=== PATIENT | male | born 1935 | race Caucasian/White ===

== ENCOUNTER 2022-08-08 20:38 | Outpatient (CLI) | payer MEDICARE, SELFPAY | END 2022-08-08 20:39 | disposition home or self-care (01) | LOC: AMB 08-09 16:26 | PROVIDERS: PCP Family Medicine; Visit Provider Family Medicine | DX: R53.1 Weakness (principal) | CPT/HCPCS: A0998 ==

== ENCOUNTER 2022-11-27 11:15 | Outpatient (RCR) | payer MEDICARE, SELFPAY | END 2023-02-25 23:59 | disposition home or self-care (01) | PROVIDERS: PCP Family Medicine; Visit Provider Family Medicine | DX: M40.04 Postural kyphosis, thoracic region (principal); M79.89 Other specified soft tissue disorders; Z51.89 Encounter for other specified aftercare | CPT/HCPCS: 97110; 97162 ==

== ENCOUNTER 2022-11-28 12:54 | Outpatient (CLI) | payer MEDICARE, SELFPAY | END 2022-11-28 12:55 | disposition home or self-care (01) | LOC: AMB 18:29 | PROVIDERS: PCP Family Medicine; Visit Provider Family Medicine | DX: R53.1 Weakness (principal); R51.9 Headache, unspecified; R06.09 Other forms of dyspnea | CPT/HCPCS: A0425; A0427 ==

== ENCOUNTER 2022-11-28 13:22 | Inpatient (IN) | payer MEDICARE, SELFPAY ==
[2022-11-28] VITALS (21 sets, daily range): BP systolic 113–149; BP diastolic 52–85; PULSE 81–110; RESP 16–24; TEMP 36.7–37.3; O2SAT 85–97; BMI 28.6; BMI 28.9
--- NOTE | 2022-11-28 13:33 | CRLHL7_ITS ---
For Patients: As a result of the Cures Act, medical imaging exams and procedure reports are released immediately into your electronic medical record. You may view this report before your referring provider. If you have questions, please contact your health care provider. INDICATION: Fever TECHNIQUE: Chest 1 view. COMPARISON: None. FINDINGS: The heart is normal in size. There is a 2 lead left-sided cardiac device. The pulmonary vasculature is within normal limits. The lung apices are obscured by the patient`s chin. The remainder of the lungs are clear. Bones are unremarkable for patient age. IMPRESSION: No acute cardiopulmonary process within the limits of this exam. Dictated by Jovita Huizar MD @ 11/28/2022 2:24:34 PM Dictated by: Jovita Huizar MD @ 11/28/2022 14:25:02 (Electronically Signed)
--- NOTE | 2022-11-28 13:36 | ED_ITS ---
HPI - General Adult General Time Seen by Provider: 13:36 Date Seen: 11/28/22 Chief complaint: Weakness Stated complaint: Possible sepsis Time Seen by Provider: 11/28/22 13:25 Source: patient Mode of arrival: EMS Limitations: physical limitation History of Present Illness HPI narrative: Patient is an 87 year white male who lives at assisted living without any other additional services. Apparently was too weak to get around today. He reports last night today were a ?bad day? he had a fever he felt chilled he felt weak. Specifically denies any specific cough he denies sore throat denies earache denies dysuria frequency denies diarrhea constipation denies abdominal pain, denies chest pain or breathing difficulty. He has not had COVID recently by report. He was sent in by ambulance. He apparently has a temperature and heart rate above 100 so there was concern for sepsis. Related Data Home Medications Medication Instructions Recorded Confirmed acetaminophen 500 mg tablet 1,000 mg PO BID 11/28/22 11/28/22 alendronate 70 mg tablet 70 mg PO HOPE 11/28/22 11/28/22 cetirizine 10 mg tablet 10 mg PO DAILY 11/28/22 11/28/22 fluticasone propionate 50 1 spray intranasal BID 11/28/22 11/28/22 mcg/actuation nasal spray,suspension ibuprofen 200 mg tablet (Advil) 200 mg PO QID PRN 11/28/22 11/28/22 lisinopril 5 mg tablet 5 mg PO DAILY 11/28/22 11/28/22 valacyclovir 1 gram tablet 2,000 mg PO BID PRN 11/28/22 11/28/22 vitamins A,C,S-meon-ueiqiu 2,148 1 tab PO DAILY 11/28/22 11/28/22 mcg-113 mg-45 mg-17.4 mg tablet (Eye Multivitamin) Allergies Allergy/AdvReac Type Severity Reaction Status Date / Time amoxicillin Allergy Rash Verified 11/28/22 13:39 Review of Systems Status of ROS: Reports: 10 or more systems reviewed and unremarkable except as noted in History and below [facility] Medical History Actinic keratosis ?L57.0 - Actinic keratosis (ICD-10) Basal cell carcinoma (BCC) ?C44.91 - Basal cell carcinoma of skin, unspecified (ICD-10) Essential hypertension ?I10 - Essential (primary) hypertension (ICD-10) Herpes zoster dermatitis ?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 - Zoster with other complications (ICD-10) ?L30.8 - Other specified dermatitis (ICD-10) History of deep venous thrombosis (DVT) of distal vein of left lower extremity ?Z86.718 - Personal history of other venous thrombosis and embolism (ICD-10) History of Mobitz type II block ?Z86.79 - Personal history of other diseases of the circulatory system (ICD-1 0) History of recurrent UTIs ?Z87.440 - Personal history of urinary (tract) infections (ICD-10) Major depressive disorder ?F32.9 - Major depressive disorder, single episode, unspecified (ICD-10) Obstructive sleep apnea ?G47.33 - Obstructive sleep apnea (adult) (pediatric) (ICD-10) Osteoarthritis ?M19.90 - Unspecified osteoarthritis, unspecified site (ICD-10) Osteoporosis ?M81.0 - Age-related osteoporosis without current pathological fracture (ICD- 10) Seasonal allergic rhinitis ?J30.2 - Other seasonal allergic rhinitis (ICD-10) Sensorineural hearing loss (SNHL) of both ears ?H90.3 - Sensorineural hearing loss, bilateral (ICD-10) Surgical History H/O wisdom tooth extraction ?K08.409 - Partial loss of teeth, unspecified cause, unspecified class (ICD- 10) S/P tonsillectomy ?Z90.89 - Acquired absence of other organs (ICD-10) S/P YAG capsulotomy, bilateral ?Z98.890 - Other specified postprocedural states (ICD-10) Status post cataract extraction of both eyes with insertion of intraocular lens ?Z98.41 - Cataract extraction status, right eye (ICD-10) ?Z98.42 - Cataract extraction status, left eye (ICD-10) ?Z96.1 - Presence of intraocular lens (ICD-10) Status post placement of cardiac pacemaker ?Z95.0 - Presence of cardiac pacemaker (ICD-10) Social History Highest level of school completed/degree received: Master's degree Smoking Status: Current some day smoker Second hand tobacco smoke exposure: No How often do you have a drink containing alcohol: never AUDIT-C Alcohol total score: 0 Non-prescribed substance use: denies use Caffeine: Yes (2 cups) service: No Exam Narrative: Exam Narrative: Objective: In general the patient is in no apparent distress he is alert or x3 noncyanotic He feels warm to touch, vital signs are being obtained HEENT is unremarkable no facial asymmetry nose scleral icterus neck is supple chest is clear no rales or wheezing, heart rhythm regular with 2/6 systolic murmur. Abdomen is benign soft nontender no masses or peritonitis Extremities are no edema Neurologic nonfocal Skin periphery warm and dry Const: Vital Signs, click to edit/add: Vital Signs - 24 hr 11/28/22 13:25 11/28/22 13:42 11/28/22 14:00 Temperature 99.1 F 98.3 F Pulse Rate Pulse Rate [Apical ] 109 H Respiratory Rate 24 Blood Pressure Blood Pressure [Ri ght Upper Arm] 135/67 Pulse Oximetry 91 93 Oxygen Delivery Me thod Room Air 11/28/22 14:07 11/28/22 14:15 11/28/22 14:22 Temperature Pulse Rate 110 H 106 H 110 H Pulse Rate [Apical ] Respiratory Rate Blood Pressure 149/67 H Blood Pressure [Ri ght Upper Arm] Pulse Oximetry 91 92 91 Oxygen Delivery Me thod 11/28/22 14:30 11/28/22 14:45 11/28/22 15:00 Temperature Pulse Rate 106 H 98 97 Pulse Rate [Apical ] Respiratory Rate Blood Pressure Blood Pressure [Ri ght Upper Arm] Pulse Oximetry 91 94 90 Oxygen Delivery Me thod 11/28/22 15:02 11/28/22 15:15 11/28/22 15:22 Temperature Pulse Rate 93 92 96 Pulse Rate [Apical ] Respiratory Rate Blood Pressure 131/63 131/69 Blood Pressure [Ri ght Upper Arm] Pulse Oximetry 93 89 88 Oxygen Delivery Me thod 11/28/22 15:30 11/28/22 15:42 11/28/22 15:45 Temperature Pulse Rate 95 89 95 Pulse Rate [Apical ] Respiratory Rate Blood Pressure 121/61 Blood Pressure [Ri ght Upper Arm] Pulse Oximetry 93 85 L 89 Oxygen Delivery Me thod Course Vital Signs Vital signs: Initial Vital Signs Temperature 99.1 F 11/28/22 13:25 Temperature Source Temporal Artery Scan 11/28/22 13:25 Pulse Rate 109 H 11/28/22 13:25 Pulse Rhythm Regular 11/28/22 13:25 Respiratory Rate 24 11/28/22 13:25 Blood Pressure 135/67 11/28/22 13:25 Blood Pressure Mean 89 11/28/22 13:25 Blood Pressure Position Supine 11/28/22 13:25 Pulse Oximetry 91 11/28/22 13:25 Oxygen Delivery Method Room Air 11/28/22 13:25 Vital Signs Temperature 99.1 F 11/28/22 13:25 Pulse Rate 109 H 11/28/22 13:25 Respiratory Rate 24 11/28/22 13:25 Blood Pressure 135/67 11/28/22 13:25 Pulse Oximetry 91 11/28/22 13:25 Oxygen Delivery Method Room Air 11/28/22 13:25 Temperature 98.1 F 11/28/22 18:59 Pulse Rate 85 11/28/22 18:59 Respiratory Rate 16 11/28/22 18:59 Blood Pressure 122/85 11/28/22 18:59 Pulse Oximetry 97 11/28/22 18:59 Oxygen Delivery Method Room Air 11/28/22 18:59 Medical Decision Making MDM Narrative Medical decision making narrative: Patient is an 87 year white male brought in by EMS with weakness and chills and fever. He has a low-grade temperature. The patient reports that he lives in assisted living, without any additional services. He was unable to walk today due to weakness. At this point will rule out sepsis with lactate, blood cultures x2, chest x-ray, urinalysis. Will start him on IV fluid, IV Zosyn and Zithromax. Will check a COVID/influenza/RSV swab. As well as above-mentioned studies including electrolytes and hematology panel. Patient likely will need admission due to his age inability to ambulate, and assisted living status. Addendum: The patient's EKG shows a left bundle-branch type block, the patient has had an interval pacemaker placed for Mobitz type 2 block. The patient's chest x-ray shows a pacemaker in place some diffuse interstitial fibrosis type changes no other marked abnormality. Patient has a positive urinalysis with greater than 100 white cells prior heart field. Patient was given IV antibiotics, blood cultures done, he would fall in with sepsis category, and will treat him with IV antibiotics as above, will need admission to hospital. Patient does have a positive urinary tract infection, he could be uroseptic, he was given IV antibiotics. Also of note is his troponin is minimally elevated likely based on his elevated BNP and mild coronary strain due to his infection and illness. He will be admitted the hospital discussed with hospitalist. With discussion with the patient he reports he has had multiple UTIs in the past. Lab Data Labs: Lab Results 11/28/22 11/28/22 11/28/22 Range/Units 13:42 14:04 14:20 WBC 27.73 H* (4.50-11.00) K/uL RBC 3.64 L (4.30-5.90) m/uL Hgb 12.5 L (13.5-17.5) gm/dL Hct 37.4 (37.0-53.0) % MCV 103 H (80-100) fL MCH 34 (26-34) pg MCHC 33 (32-36) gm/dL RDW Coeff of Sveta 13.6 (11.5-15.5) % Plt Count 167 (140-440) K/uL Neut % (Auto) 84.2 H (42.0-72.0) % Lymph % (Auto) 7.3 L (20-44) % Schley % (Auto) 7.5 (0.0-11.0) % Eos % (Auto) 0.0 (0.0-7.0) % Baso % (Auto) 0.1 (0.0-3.0) % Neut # (Auto) 23.30 H (1.7-7.0) K/uL Lymph # (Auto) 2.00 (0.90-2.90) K/uL Schley # (Auto) 2.10 H (0.00-0.90) K/UL Eos # (Auto) 0.00 (0.00-0.50) K/uL Baso # (Auto) 0.00 (0.00-0.30) K/uL Diff Slide Review Acceptable Review (Acceptable) INR 1.07 (0.91-1.10) Sodium 140 (135-149) mmol/L Potassium 4.4 (3.6-5.1) mmol/L Chloride 110 (96-114) mmol/L Carbon Dioxide 23 (20-32) mmol/L BUN 23 (7-30) mg/dL Creatinine 0.9 (0.5-1.5) mg/dL Estimated Creat Clear 46.98 Estimated GFR 84 ml/min Glucose 114 (60-115) mg/dL Lactate 2.4 H (0.5-1.9) mmol/L Calcium 9.4 (8.4-10.6) mg/dL Total Bilirubin 1.5 (0.1-1.5) mg/dL Direct Bilirubin 0.4 (0.0-0.5) mg/dL AST 85 H (12-35) U/L ALT 47 (4-50) U/L Alkaline Phosphatase 187 H (40-150) U/L Troponin I 0.07 H* (0.01-0.04) ng/mL C-Reactive Protein 5.5 H (0.5-1.0) mg/dL NT-Pro-B Natriuret Pep 1650 pg/mL Total Protein 7.2 (6.0-8.3) g/dL Albumin 3.7 (3.3-5.0) g/dL Urine Color Yellow (Yellow) Urine Appearance Cloudy A (Clear) Urine pH 5.5 (5.0-8.5) Ur Specific Maynard 1.020 (1.000-1.030) Urine Protein Negative (Negative) Urine Glucose (UA) Negative (Negative) Urine Ketones Negative (Negative) Urine Blood Trace-intact A (Negative) Urine Nitrite Positive A (Negative) Urine Bilirubin Negative (Negative) Urine Urobilinogen 0.2 (0.2-1.0) Ur Leukocyte Esterase 1+ A (Negative) Urine RBC 2-5 A (0-2) Urine WBC >100 A (0-5) Ur Squamous Epith Cells None (None-Few) Urine Bacteria Many A (None) SARS-CoV-2 (PCR) Negative SARS-CoV-2 (Negative) Influenza Type A (PCR) Negative PCR FLU A (Negative) Influenza Type B (PCR) Negative PCR FLU B (Negative) RSV (PCR) Negative PCR RSV (Negative) Discharge Plan Discharge Clinical Impression: Fever, Weakness, Urinary tract infection Patient Disposition: Admitted As Inpatient
--- NOTE | 2022-11-28 14:11 | ED.NURSE ---
Upated patient's son, Saul, with plan and patient status. He agrees with the plan of care and would like to remain updated.
[2022-11-28 14:17] LABS: Lactate* 2.4 mmol/L (0.5-1.9)
[2022-11-28 14:22] LABS: Basophils Percent Auto 0.1 % (0.0-3.0); Hematocrit 37.4 % (37.0-53.0); Hemoglobin* 12.5 gm/dL (13.5-17.5); Immature Granulocytes Pct Auto 0.9 %; Lymphocytes Percent Auto 7.3 % (20-44); Mean Corpuscular HGB Conc 33 gm/dL (32-36); Mean Corpuscular Hemoglobin 34 pg (26-34); Mean Corpuscular Volume 103 fL (80-100); Monocytes Percent Auto 7.5 % (0.0-11.0); Neutrophils Percent Auto 84.2 % (42.0-72.0); Platelet Count* 167 K/uL (140-440); RDW Coefficient of Variation % 13.6 % (11.5-15.5); Red Blood Count 3.64 m/uL (4.30-5.90)
[2022-11-28 14:25] LABS: PCR FLU A Negative PCR FLU A (Negative); PCR FLU B Negative PCR FLU B (Negative); PCR RSV Negative PCR RSV (Negative)
[2022-11-28 14:30] LABS: SARS PCR* Negative SARS-CoV-2 (Negative)
[2022-11-28 14:33] LABS: Appearance Urine Cloudy (Clear); Bilirubin Urine Negative (Negative); Blood Urine Trace-intact (Negative); Color Urine Yellow (Yellow); Glucose Urine Negative (Negative); Ketones Urine Negative (Negative); Leukocyte Esterase Urine 1+ (Negative); Nitrite Urine Positive (Negative); Protein Urine Negative (Negative); Urobilinogen Urine 0.2 (0.2-1.0); pH Urine 5.5 (5.0-8.5)
[2022-11-28 14:35] LABS: Albumin* 3.7 g/dL (3.3-5.0); Chloride* 110 mmol/L (96-114)
[2022-11-28 14:36] LABS: Potassium* 4.4 mmol/L (3.6-5.1); Sodium* 140 mmol/L (135-149)
[2022-11-28 14:38] LABS: Carbon Dioxide* 23 mmol/L (20-32); Creatinine* 0.9 mg/dL (0.5-1.5); Est. Creatinine Clearance* 46.98; Estimated Glomerular Filt Rate 84 ml/min; INR 1.07 (0.91-1.10); Prothrombin Time 14.5 Seconds
[2022-11-28 14:39] LABS: Alanine Aminotransferase* 47 U/L (4-50); Alkaline Phosphatase* 187 U/L (40-150); Aspartate Amino Transferase* 85 U/L (12-35); Bilirubin Direct* 0.4 mg/dL (0.0-0.5); Bilirubin Total* 1.5 mg/dL (0.1-1.5); Blood Urea Nitrogen* 23 mg/dL (7-30); Glucose* 114 mg/dL (60-115); Total Protein* 7.2 g/dL (6.0-8.3)
[2022-11-28 14:40] LABS: Calcium* 9.4 mg/dL (8.4-10.6)
[2022-11-28] MEDS: 0.9 % SODIUM CHLORIDE 500 ML 500 ML IV (14:41)
[2022-11-28 14:42] LABS: C Reactive Protein* 5.5 mg/dL (0.5-1.0)
[2022-11-28] MEDS: ERTAPENEM 1 GM in 0.9 % SODIUM CHLORIDE Mini-bag 100 ML IVPB (14:45)
[2022-11-28 14:50] LABS: NT Pro B Type NatriureticPept* 1650 pg/mL
[2022-11-28 14:51] LABS: Bacteria Urine Many; WBC Urine >100 (0-5)
[2022-11-28 14:53] LABS: Troponin I* 0.07 ng/mL (0.01-0.04)
[2022-11-28 14:54] LABS: White Blood Count* 27.73 K/uL (4.50-11.00)
[2022-11-28 14:55] LABS: Slide Review Acceptable Review (Acceptable); Slide Review Reflex Yes
[2022-11-28] MEDS: ACETAMINOPHEN 500 MG TABLET 1000 MG PO ×2 (15:16→20:54)
--- NOTE | 2022-11-28 15:27 | ED.NURSE ---
Upated son, Saul, with diagnosis and plan to admit to the hospital. Also updated his assisted living apartments.
--- NOTE | 2022-11-28 16:16 | PM.IMHP1 ---
Hospitalist- H&P: HPI History of Present Illness Time Seen by Provider: 15:30 Date Seen: 11/28/22 Chief complaint: Possible sepsis Narrative: Veronica Toro is a 87 year old Man who presents today with a 24 hour history of feeling like shit. He is brought in by ambulance. Has lost his appetite, has not had much to eat or drink at all, feels weak, has arthralgias and myalgias, has felt feverish but has not taking his temperature, has felt chilled, barely able to get out of bed. Denies cough for shortness of breath. Denies URI symptoms. Denies any skin rashes or ulcers. Denies dysuria, urgency, frequency, hematuria. Acknowledges history of recurrent bladder infections in the past. Denies diarrhea or constipation. Denies nausea or vomiting. Denies chest heaviness, pressure, tightness, or pain. To the best of his knowledge he has not been exposed to COVID-19. Review of Systems Status of ROS: Reports: 10 or more systems reviewed and unremarkable except as noted in History and below Narrative: Lives in assisted living setting without additional services. Too weak to care for himself or get around today. Called in the ambulance. His has dementia and requires cares for the same. No recent trauma, injury, travel, or illness. Denies angina, anginal equivalent, syncope or near-syncope. Acknowledges orthostasis today. Denies vertigo. Denies palpitations, chest fluttering. Believes his heart rate has been rapid today. Denies rigors or diaphoresis. Denies paroxysmal nocturnal dyspnea, orthopnea, edema, or claudication. Denies focal motor neurologic deficits. Skin is intact. Denies polyuria, polydipsia, polyphagia. Denies night sweats. Denies back or abdominal discomforts. He designates his daughter, Danitza, as his power of civil attorney for health should that be required. Danitza cell phone number is [phone]. Previously he requested DNR DNI resuscitation status. Today he changes his mind. He asked us to attempt resuscitation should that be warranted, because he worries about his . Primary care physician is Dr. Cisco Calloway. 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 - Zoster with other complications (ICD-10) ?L30.8 - Other specified dermatitis (ICD-10) History of deep venous thrombosis (DVT) of distal vein of left lower extremity ?Z86.718 - Personal history of other venous thrombosis and embolism (ICD-10) History of Mobitz type II block ?Z86.79 - Personal history of other diseases of the circulatory system (ICD-10) History of recurrent UTIs ?Z87.440 - Personal history of urinary (tract) infections (ICD-10) Major depressive disorder ?F32.9 - Major depressive disorder, single episode, unspecified (ICD-10) Obstructive sleep apnea ?G47.33 - Obstructive sleep apnea (adult) (pediatric) (ICD-10) Osteoarthritis ?M19.90 - Unspecified osteoarthritis, unspecified site (ICD-10) Osteoporosis ?M81.0 - Age-related osteoporosis without current pathological fracture (ICD-10) Seasonal allergic rhinitis ?J30.2 - Other seasonal allergic rhinitis (ICD-10) Sensorineural hearing loss (SNHL) of both ears ?H90.3 - Sensorineural hearing loss, bilateral (ICD-10) Surgical History H/O wisdom tooth extraction ?K08.409 - Partial loss of teeth, unspecified cause, unspecified class (ICD-10) S/P tonsillectomy ?Z90.89 - Acquired absence of other organs (ICD-10) S/P YAG capsulotomy, bilateral ?Z98.890 - Other specified postprocedural states (ICD-10) Status post cataract extraction of both eyes with insertion of intraocular lens ?Z98.41 - Cataract extraction status, right eye (ICD-10) ?Z98.42 - Cataract extraction status, left eye (ICD-10) ?Z96.1 - Presence of intraocular lens (ICD-10) Status post placement of cardiac pacemaker ?Z95.0 - Presence of cardiac pacemaker (ICD-10) Social History Highest level of school completed/degree received: Master's degree Smoking Status: Current some day smoker Second hand tobacco smoke exposure: No How often do you have a drink containing alcohol: never AUDIT-C Alcohol total score: 0 Non-prescribed substance use: denies use Caffeine: Yes (2 cups) service: No Meds Home Medications and Allergies Home Medications Medication Instructions Recorded Confirmed Type acetaminophen 500 mg tablet 1,000 mg PO BID 11/28/22 11/28/22 History alendronate 70 mg tablet 70 mg PO HOPE 11/28/22 11/28/22 History cetirizine 10 mg tablet 10 mg PO DAILY 11/28/22 11/28/22 History fluticasone propionate 50 1 spray intranasal BID 11/28/22 11/28/22 History mcg/actuation nasal spray,suspension ibuprofen 200 mg tablet (Advil) 200 mg PO QID PRN 11/28/22 11/28/22 History lisinopril 5 mg tablet 5 mg PO DAILY 11/28/22 11/28/22 History valacyclovir 1 gram tablet 2,000 mg PO BID PRN 11/28/22 11/28/22 History vitamins A,C,F-sccc-kqonnt 2,148 1 tab PO DAILY 11/28/22 11/28/22 History mcg-113 mg-45 mg-17.4 mg tablet (Eye Multivitamin) Allergies Allergy/AdvReac Type Severity Reaction Status Date / Time amoxicillin Allergy Rash Verified 11/28/22 13:39 Exam Narrative: Exam Narrative: Appears ill. Eyes closed. Easily arousable. Dry lips and buccal mucosa. Alert and oriented to self, place, time, and situation. Mood and affect are congruent. Worried about his 's condition in his absence. Hearing is mildly decreased bilaterally. Vision is grossly normal. External auditory canals are clear. Tympanic membranes are normal. No conjunctival injection or icterus. Who was equally round react to light and accommodation. Dry nasal and buccal mucosa. Dentition in fair repair. Midline trachea. Neck supple. No adenopathy in the pre or postauricular chains anterior-posterior cervical chains supra or infraclavicular fossa, submandibular submental fossa, or axilla bilaterally. Lungs are clear to auscultation without wheezing, rhonchi, or rales. No CVA tenderness to thumping. Heart tones tachycardic with regular rhythm. Normal S1-S2. No murmur, gallop, or rub. Abdomen with active bowel sounds, soft, nontender. Skin is warm, dry, intact. No petechiae, rashes, or cyanosis. 2-3 mm pitting edema pretibially bilaterally. Moves all 4 extremities. No focal motor neurologic deficits. Moves all joints. Const: Vital Signs, click to edit/add: Vital Signs - 24 hr 11/28/22 13:25 11/28/22 13:42 11/28/22 14:00 Temperature 99.1 F 98.3 F Pulse Rate Pulse Rate [Apical ] 109 H Respiratory Rate 24 Blood Pressure Blood Pressure [Ri ght Upper Arm] 135/67 Pulse Oximetry 91 93 Oxygen Delivery Me thod Room Air 11/28/22 14:07 11/28/22 14:15 11/28/22 14:22 Temperature Pulse Rate 110 H 106 H 110 H Pulse Rate [Apical ] Respiratory Rate Blood Pressure 149/67 H Blood Pressure [Ri ght Upper Arm] Pulse Oximetry 91 92 91 Oxygen Delivery Me thod 11/28/22 14:30 11/28/22 14:45 11/28/22 15:00 Temperature Pulse Rate 106 H 98 97 Pulse Rate [Apical ] Respiratory Rate Blood Pressure Blood Pressure [Ri ght Upper Arm] Pulse Oximetry 91 94 90 Oxygen Delivery Me thod 11/28/22 15:02 11/28/22 15:15 11/28/22 15:22 Temperature Pulse Rate 93 92 96 Pulse Rate [Apical ] Respiratory Rate Blood Pressure 131/63 131/69 Blood Pressure [Ri ght Upper Arm] Pulse Oximetry 93 89 88 Oxygen Delivery Me thod 11/28/22 15:30 11/28/22 15:42 11/28/22 15:45 Temperature Pulse Rate 95 89 95 Pulse Rate [Apical ] Respiratory Rate Blood Pressure 121/61 Blood Pressure [Ri ght Upper Arm] Pulse Oximetry 93 85 L 89 Oxygen Delivery Me thod Documenting provider has reviewed patient's vital signs: yes Hospitalist - H&P: Result Labs Labs: Short CBC 11/28/22 Range/Units 14:04 WBC 27.73 H* (4.50-11.00) K/uL Hgb 12.5 L (13.5-17.5) gm/dL Hct 37.4 (37.0-53.0) % Plt Count 167 (140-440) K/uL BMP 11/28/22 14:04 Sodium 140 Potassium 4.4 Chloride 110 Carbon Dioxide 23 BUN 23 Creatinine 0.9 Glucose 114 Calcium 9.4 Cardiac Enzymes 11/28/22 Range/Units 14:04 Troponin I 0.07 H* (0.01-0.04) ng/mL Liver Function 11/28/22 Range/Units 14:04 Total Bilirubin 1.5 (0.1-1.5) mg/dL Direct Bilirubin 0.4 (0.0-0.5) mg/dL AST 85 H (12-35) U/L ALT 47 (4-50) U/L Alkaline Phosphatase 187 H (40-150) U/L Albumin 3.7 (3.3-5.0) g/dL Urine 11/28/22 Range/Units 14:20 Urine Color Yellow (Yellow) Urine Appearance Cloudy A (Clear) Urine pH 5.5 (5.0-8.5) Ur Specific [place] 1.020 (1.000-1.030) Urine Protein Negative (Negative) Urine Glucose (UA) Negative (Negative) ECG Attestation: I personally reviewed and interpreted this ECG as follows: ECG interpretation date: 11/28/22 ECG interpretation time: 15:30 Prior ECG tracings: not available for review Pacemaker model: Sinus tachycardia. Left bundle branch block. Imaging Chest x-ray: Attestation: I have reviewed the pertinent imaging results. Radiologist's impression: No acute abnormalities. Assessment and Plan Assessment and plan (1) Sepsis: Status: Acute (2) Urinary tract infection: Status: Acute (3) Weakness: Status: Acute (4) Dehydration: Status: Acute (5) Elevated troponin I level: Problem comment: Suspect type 2 myocardial infarction with demand myocardial ischemia Status: Acute Plan 1. Reviewed impression with patient and his sister. 2. Recommended admission to the hospital which he is agreeable to. 3. IV fluids and close monitoring. 4. Patient was given a single dose of IV ertapenem and a single dose of azithromycin in the emergency department. Will switch to levofloxacin pending blood culture and urine culture results. 5. Telemetry, serial echocardiogram, serial troponin I. 6. Echocardiogram tomorrow 7. Monitor labs 8. Occupational therapy and physical therapy consultation. 9. Answered patient's questions to satisfaction.
[2022-11-28] MEDS: 0.9 % SODIUM CHLORIDE 1000 ml 1,000 ML IV (17:42)
--- NOTE | 2022-11-28 18:27 | PC.NURSE ---
shift note: pt to floor @ 1630 via strether. pt a&ox3. pt states he's very weak when standing. pt transfer to bed with 2 assist. Pt c/o neck pain. adjusted pillows to assist with neck comfort. Iv to Lt AC patent. LS clr. Pt sats 88-93% RA. jorge l socks in place. pt afeb with stable. vss
[2022-11-28] MEDS: LACTATED RINGERS 1000 ML 1,000 ML 125 ML IV (18:58)
[2022-11-28 19:21] LABS: Lactate* 2.2 mmol/L (0.5-1.9)
[2022-11-28 19:53] LABS: Troponin I* 0.08 ng/mL (0.01-0.04)
[2022-11-28] MEDS: ENOXAPARIN 40 MG/0.4 ML INJ SUBCUT (20:55)
[2022-11-28] MEDS: FLUTICASONE PROPIONATE NASAL 1 SPRAY NOSTRIL-B (20:56)
[2022-11-29] VITALS (8 sets, daily range): BP systolic 117–143; BP diastolic 53–74; PULSE 80–95; RESP 16–20; TEMP 36.5–36.8; O2SAT 91–96
[2022-11-29] MEDS: LACTATED RINGERS 1000 ML 1,000 ML 125 ML IV ×3 (03:51→20:05)
[2022-11-29] MEDS: ACETAMINOPHEN 325 MG TABLET 650 MG PO (04:12)
[2022-11-29 06:21] LABS: Basophils Percent Auto 0.2 % (0.0-3.0); Eosinophils Percent Auto 0.4 % (0.0-7.0); Hemoglobin* 10.6 gm/dL (13.5-17.5); Immature Granulocytes Pct Auto 1.2 %; Lymphocytes Percent Auto 13.7 % (20-44); Mean Corpuscular HGB Conc 33 gm/dL (32-36); Mean Corpuscular Hemoglobin 34 pg (26-34); Mean Corpuscular Volume 104 fL (80-100); Monocytes Percent Auto 8.4 % (0.0-11.0); Neutrophils Percent Auto 76.1 % (42.0-72.0); Platelet Count* 135 K/uL (140-440); RDW Coefficient of Variation % 14.1 % (11.5-15.5); Red Blood Count 3.09 m/uL (4.30-5.90); White Blood Count* 22.84 K/uL (4.50-11.00)
[2022-11-29 06:22] LABS: Lactate* 1.6 mmol/L (0.5-1.9)
[2022-11-29 06:24] LABS: Slide Review Reflex No
[2022-11-29 06:48] LABS: Albumin* 2.7 g/dL (3.3-5.0); Chloride* 111 mmol/L (96-114); Sodium* 138 mmol/L (135-149)
[2022-11-29 06:49] LABS: Potassium* 4.2 mmol/L (3.6-5.1)
[2022-11-29 06:51] LABS: Aspartate Amino Transferase* 69 U/L (12-35); Creatinine* 0.9 mg/dL (0.5-1.5); Est. Creatinine Clearance* 46.98; Estimated Glomerular Filt Rate 84 ml/min
[2022-11-29 06:52] LABS: Alkaline Phosphatase* 134 U/L (40-150); Blood Urea Nitrogen* 25 mg/dL (7-30); Calcium* 8.4 mg/dL (8.4-10.6); Carbon Dioxide* 26 mmol/L (20-32); Glucose* 105 mg/dL (60-115); Phosphorus* 2.5 mg/dL (2.5-4.5)
[2022-11-29 06:54] LABS: C Reactive Protein* 8.8 mg/dL (0.5-1.0)
[2022-11-29 07:13] LABS: Troponin I* 0.07 ng/mL (0.01-0.04)
--- NOTE | 2022-11-29 07:42 | PC.NURSE ---
Pt alert and oriented x3. Afebrile. Pt reports 9/10 pain in neck, pain managed with PRN medication. Pt denies chest pain, SOB, and N/V. Pt is up A1 with walker and gait belt, tolerating a regular diet. Pt slept throughout most of night. Pt voided 200 overnight, bladder scan was done in the morning, scanned 106 ml, pt attempted to void again, voiding 50 ml. ?
[2022-11-29 08:12] LABS: Procalcitonin* 1.22 ng/mL (<0.50)
[2022-11-29 08:12] LABS: Procalcitonin* 1.77 ng/mL (<0.50)
[2022-11-29] MEDS: FLUTICASONE PROPIONATE NASAL 1 SPRAY NOSTRIL-B ×2 (09:40→20:54)
--- NOTE | 2022-11-29 10:06 | P.IMPN_ITS ---
Progress Note: A&P Assessment and plan (1) Elevated troponin I level: Problem details: Suspect type 2 myocardial infarction with demand myocardial ischemia Status: Acute (2) Sepsis: Problem details: from bladder source likely to have blood stream expansion. Status: Acute (3) Weakness: Problem details: sepsis related Status: Acute Subjective Date Seen: 11/29/22 Interval history: Daily Progress Note - Hospital Medicine Day #: 1 ABX rec'd ertapenem, azithro and pip/tazo x 1 dose 09/30. He got his first day of IV lequain 10/01 CC: weak, headache, washed out feeling. OVERNIGHT UPDATES FROM STAFF & MED, LAB, IMAGING UPDATES Feels he has turned the corner. talking about dementia care units and how he came to live here. Afebrile since admission. Blood pressure 126/59. Pulse 80. Respirations 18. Pulse ox 93%. On room air. White blood cell count was 27.73 on the day of admission down to 22.84 Hemoglobin has dropped from 12.5-10.6 Platelet count has dropped from 167 down to 135 Electrolytes this morning are all reassuring including renal function, basic electrolytes. Lactate down to 1.6 from 2.2 -AST is mildly elevated Troponin is mildly elevated but flat. -echo is pending -quadruple viral nasal pathogen negative CXR: No acute cardiopulmonary process within the limits of this exam. Procalcitonin is up trending 1.22-1.77 Preliminary urine cultures now growing a Gram-positive siri. But this is now surprise given his urine findings of a positive nitrite, 1+ leukocyte esterase. Greater than 100 white blood cells. Objective: NAD. looks stated age. Vitals: see above Lungs: Clear. Cardiac: S1S2. Disposition/Potential discharge - Likely to return to previous living situation. Total time is 35 minutes with greater than 50% spent in counseling and coordination of care. Exam Const: Vital Signs, click to edit/add: Vital Signs - 24 hr 11/28/22 13:25 11/28/22 13:42 11/28/22 14:00 Temperature 99.1 F 98.3 F Pulse Rate Pulse Rate [Apical ] 109 H Pulse Rate [Pulse Oximeter] Pulse Rate [Right Brachial] Pulse Rate [orthos tatic lying Right Brachial] Pulse Rate [orthos tatic sitting Righ t Brachial] Pulse Rate [orthos tatic standing Rig ht Brachial] Respiratory Rate 24 Blood Pressure Blood Pressure [Ri ght Arm] Blood Pressure [Ri ght Upper Arm] 135/67 Blood Pressure [or thostatic lying Ri ght Arm] Blood Pressure [or thostatic sitting Right Arm] Blood Pressure [or thostatic standing Right Arm] Pulse Oximetry 91 93 Oxygen Delivery Me thod Room Air 11/28/22 14:07 11/28/22 14:15 11/28/22 14:22 Temperature Pulse Rate 110 H 106 H 110 H Pulse Rate [Apical ] Pulse Rate [Pulse Oximeter] Pulse Rate [Right Brachial] Pulse Rate [orthos tatic lying Right Brachial] Pulse Rate [orthos tatic sitting Righ t Brachial] Pulse Rate [orthos tatic standing Rig ht Brachial] Respiratory Rate Blood Pressure 149/67 H Blood Pressure [Ri ght Arm] Blood Pressure [Ri ght Upper Arm] Blood Pressure [or thostatic lying Ri ght Arm] Blood Pressure [or thostatic sitting Right Arm] Blood Pressure [or thostatic standing Right Arm] Pulse Oximetry 91 92 91 Oxygen Delivery Me thod 11/28/22 14:30 11/28/22 14:45 11/28/22 15:00 Temperature Pulse Rate 106 H 98 97 Pulse Rate [Apical ] Pulse Rate [Pulse Oximeter] Pulse Rate [Right Brachial] Pulse Rate [orthos tatic lying Right Brachial] Pulse Rate [orthos tatic sitting Righ t Brachial] Pulse Rate [orthos tatic standing Rig ht Brachial] Respiratory Rate Blood Pressure Blood Pressure [Ri ght Arm] Blood Pressure [Ri ght Upper Arm] Blood Pressure [or thostatic lying Ri ght Arm] Blood Pressure [or thostatic sitting Right Arm] Blood Pressure [or thostatic standing Right Arm] Pulse Oximetry 91 94 90 Oxygen Delivery Me thod 11/28/22 15:02 11/28/22 15:15 11/28/22 15:22 Temperature Pulse Rate 93 92 96 Pulse Rate [Apical ] Pulse Rate [Pulse Oximeter] Pulse Rate [Right Brachial] Pulse Rate [orthos tatic lying Right Brachial] Pulse Rate [orthos tatic sitting Righ t Brachial] Pulse Rate [orthos tatic standing Rig ht Brachial] Respiratory Rate Blood Pressure 131/63 131/69 Blood Pressure [Ri ght Arm] Blood Pressure [Ri ght Upper Arm] Blood Pressure [or thostatic lying Ri ght Arm] Blood Pressure [or thostatic sitting Right Arm] Blood Pressure [or thostatic standing Right Arm] Pulse Oximetry 93 89 88 Oxygen Delivery Me thod 11/28/22 15:30 11/28/22 15:42 11/28/22 15:45 Temperature Pulse Rate 95 89 95 Pulse Rate [Apical ] Pulse Rate [Pulse Oximeter] Pulse Rate [Right Brachial] Pulse Rate [orthos tatic lying Right Brachial] Pulse Rate [orthos tatic sitting Righ t Brachial] Pulse Rate [orthos tatic standing Rig ht Brachial] Respiratory Rate Blood Pressure 121/61 Blood Pressure [Ri ght Arm] Blood Pressure [Ri ght Upper Arm] Blood Pressure [or thostatic lying Ri ght Arm] Blood Pressure [or thostatic sitting Right Arm] Blood Pressure [or thostatic standing Right Arm] Pulse Oximetry 93 85 L 89 Oxygen Delivery Ny thod 11/28/22 16:26 11/28/22 17:21 11/28/22 17:26 Temperature 98.3 F Pulse Rate 88 Pulse Rate [Apical ] Pulse Rate [Pulse Oximeter] Pulse Rate [Right Brachial] 88 Pulse Rate [orthos tatic lying Right Brachial] 81 Pulse Rate [orthos tatic sitting Righ t Brachial] 86 Pulse Rate [orthos tatic standing Rig ht Brachial] 91 Respiratory Rate 20 Blood Pressure Blood Pressure [Ri ght Arm] 113/52 L Blood Pressure [Ri ght Upper Arm] Blood Pressure [or thostatic lying Ri ght Arm] 115/53 L Blood Pressure [or thostatic sitting Right Arm] 113/61 Blood Pressure [or thostatic standing Right Arm] 131/75 Pulse Oximetry 92 [facility] 11/28/22 18:59 11/28/22 20:54 11/28/22 23:00 Temperature 98.1 F 98.1 F Pulse Rate Pulse Rate [Apical ] Pulse Rate [Pulse Oximeter] Pulse Rate [Right Brachial] 85 87 Pulse Rate [orthos tatic lying Right Brachial] Pulse Rate [orthos tatic sitting Righ t Brachial] Pulse Rate [orthos tatic standing Rig ht Brachial] Respiratory Rate 16 20 Blood Pressure Blood Pressure [Ri ght Arm] 122/85 Blood Pressure [Ri ght Upper Arm] Blood Pressure [or thostatic lying Ri ght Arm] Blood Pressure [or thostatic sitting Right Arm] Blood Pressure [or thostatic standing Right Arm] Pulse Oximetry 97 Oxygen Delivery Me thod Room Air 11/28/22 23:00 11/29/22 03:00 11/29/22 07:00 Temperature 98.1 F 98.1 F 98 F Pulse Rate Pulse Rate [Apical ] Pulse Rate [Pulse Oximeter] 87 83 80 Pulse Rate [Right Brachial] 80 Pulse Rate [orthos tatic lying Right Brachial] Pulse Rate [orthos tatic sitting Righ t Brachial] Pulse Rate [orthos tatic standing Rig ht Brachial] Respiratory Rate 18 20 18 Blood Pressure Blood Pressure [Ri ght Arm] 113/57 L 117/53 L 126/59 L Blood Pressure [Ri ght Upper Arm] Blood Pressure [or thostatic lying Ri ght Arm] Blood Pressure [or thostatic sitting Right Arm] Blood Pressure [or thostatic standing Right Arm] Pulse Oximetry 90 91 93 Oxygen Delivery Me thod Room Air Room Air Room Air Labs Labs: Laboratory Results - last 24 hr 11/28/22 11/28/22 11/28/22 13:42 14:04 14:20 WBC 27.73 H* RBC 3.64 L Hgb 12.5 L Hct 37.4 MCV 103 H MCH 34 MCHC 33 RDW Coeff of Sveta 13.6 Plt Count 167 Neut % (Auto) 84.2 H Lymph % (Auto) 7.3 L [place] % (Auto) 7.5 Eos % (Auto) 0.0 Baso % (Auto) 0.1 Neut # (Auto) 23.30 H Lymph # (Auto) 2.00 [place] # (Auto) 2.10 H Eos # (Auto) 0.00 Baso # (Auto) 0.00 Diff Slide Review Acceptable Review INR 1.07 Sodium 140 Potassium 4.4 Chloride 110 Carbon Dioxide 23 BUN 23 Creatinine 0.9 Estimated Creat Clear 46.98 Estimated GFR 84 Glucose 114 Lactate 2.4 H Calcium 9.4 Phosphorus Total Bilirubin 1.5 Direct Bilirubin 0.4 AST 85 H ALT 47 Alkaline Phosphatase 187 H Troponin I 0.07 H* C-Reactive Protein 5.5 H NT-Pro-B Natriuret Pep 1650 Total Protein 7.2 Albumin 3.7 Procalcitonin Urine Color Yellow Urine Appearance Cloudy A Urine pH 5.5 Ur Specific [place] 1.020 Urine Protein Negative Urine Glucose (UA) Negative Urine Ketones Negative Urine Blood Trace-intact A Urine Nitrite Positive A Urine Bilirubin Negative Urine Urobilinogen 0.2 Ur Leukocyte Esterase 1+ A Urine RBC 2-5 A Urine WBC >100 A Ur Squamous Epith Cells None Urine Bacteria Many A SARS-CoV-2 (PCR) Negative SARS-CoV-2 Influenza Type A (PCR) Negative PCR FLU A Influenza Type B (PCR) Negative PCR FLU B RSV (PCR) Negative PCR RSV 11/28/22 11/29/22 19:10 05:57 WBC 22.84 H RBC 3.09 L Hgb 10.6 L Hct 32.0 L MCV 104 H MCH 34 MCHC 33 RDW Coeff of Sveta 14.1 Plt Count 135 L Neut % (Auto) 76.1 H Lymph % (Auto) 13.7 L [place] % (Auto) 8.4 Eos % (Auto) 0.4 Baso % (Auto) 0.2 Neut # (Auto) 17.40 H Lymph # (Auto) 3.10 H [place] # (Auto) 1.90 H Eos # (Auto) 0.10 Baso # (Auto) 0.00 Diff Slide Review INR Sodium 138 Potassium 4.2 Chloride 111 Carbon Dioxide 26 BUN 25 Creatinine 0.9 Estimated Creat Clear 46.98 Estimated GFR 84 Glucose 105 Lactate 2.2 H 1.6 Calcium 8.4 Phosphorus 2.5 Total Bilirubin Direct Bilirubin AST 69 H ALT Alkaline Phosphatase 134 Troponin I 0.08 H* 0.07 H* C-Reactive Protein 8.8 H NT-Pro-B Natriuret Pep Total Protein Albumin 2.7 L Procalcitonin 1.22 H 1.77 H Urine Color Urine Appearance Urine pH Ur Specific [place] Urine Protein Urine Glucose (UA) Urine Ketones Urine Blood Urine Nitrite Urine Bilirubin Urine Urobilinogen Ur Leukocyte Esterase Urine RBC Urine WBC Ur Squamous Epith Cells Urine Bacteria SARS-CoV-2 (PCR) Influenza Type A (PCR) Influenza Type B (PCR) RSV (PCR)
[2022-11-29] MEDS: ACETAMINOPHEN 500 MG TABLET 1000 MG PO ×2 (12:22→20:53)
[2022-11-29 13:24] LABS: CDIFFEPI 027 PRESUMPTIVE NEGATIVE (Negative)
[2022-11-29 13:35] LABS: C.Difficile POSITIVE (Negative)
--- NOTE | 2022-11-29 14:37 | PM.EN ---
Chart Event Note Time Seen by Provider: 14:30 Date Seen: 11/29/22 Chart Event Note: Patient developed loose stools today, several episodes. Stool submitted for PCR testing for C Diff with the following results: NAAT (nuclear acid amplification test) for C Diff toxin gene is negative. C Diff toxin B is positive. Patient thus meets laboratory criteria for diagnosing active C Diff infection. Clinically he has nonsevere disease. Hence, I am starting patient on vancomycin 125 mg po QID. Given that this is his initial episode and it is nonsevere, he only needs to complete 10 days of treatment.
[2022-11-29] MEDS: VANCOMYCIN 125 MG CAPSULE PO ×2 (16:53→20:54)
--- NOTE | 2022-11-29 18:24 | PC.NURSE ---
shift note: vss stable. pt afeb. pt had 2 moderate incont stools. cdiff sample sent with positive results. Pt up 1/walker. IV patent to Lt wrist. LS clr. Pt having intermittent neck pain that is relieved with tylenol.
[2022-11-29] MEDS: ENOXAPARIN 40 MG/0.4 ML INJ SUBCUT (20:54)
[2022-11-29] MEDS: SODIUM CHLORIDE 0.9 % (FLUSH) 10 ML SYRINGE 5 ML IVF (20:55)
[2022-11-30] VITALS (10 sets, daily range): BP systolic 134–169; BP diastolic 67–83; PULSE 82–103; RESP 18–22; TEMP 36.4–36.7; O2SAT 90–95
[2022-11-30] MEDS: ACETAMINOPHEN 325 MG TABLET 650 MG PO (03:42)
[2022-11-30] MEDS: LACTATED RINGERS 1000 ML 1,000 ML 125 ML IV (03:46)
--- NOTE | 2022-11-30 06:46 | PC.NURSE ---
At 0415 pt reported feeling SOB. Oximeter was placed on left?index finger O2 sats were ranging between 85-86%.?Nurse raised HOB to 90 degrees, encouraged pt to deep breath and cough, pt used incentive spirometer x3 reaching 1200 ml per breath, pt did not cough after. Pt 02 sats did not increase. 1L oxygen via nasal canula was applied to pt. Luigi was contacted and updated around 043. Luigi called back around 0 with an order for O2 nasal cannula to maintain O2 sats of 90 and to discontinue O2 when pt is able to maintain sats of 92 or greater. Around 0600 am pt wanted oxygen off, pt is now on room air maintaining sats of 90-91% oxygen. ??
--- NOTE | 2022-11-30 06:47 | PC.NURSE ---
Pt alert and oriented x3. Afebrile. Pt reports 8/10 pain in neck, pain managed with PRN and scheduled medication. Pt denies chest pain, and N/V. Pt reports SOB with exertion, O2 order placed by Luigi to maintain 90-92%. ?Pt is up A1 with walker and gait belt, tolerating a regular diet. Pt slept poorly throughout night. Pt had 2 incontinent bowel movments with full linen changes. ?
[2022-11-30 06:56] LABS: Hematocrit 34.7 % (37.0-53.0); Hemoglobin* 11.9 gm/dL (13.5-17.5); Mean Corpuscular HGB Conc 34 gm/dL (32-36); Mean Corpuscular Hemoglobin 35 pg (26-34); Mean Corpuscular Volume 101 fL (80-100); Platelet Count* 154 K/uL (140-440); Red Blood Count 3.43 m/uL (4.30-5.90); White Blood Count* 18.25 K/uL (4.50-11.00)
[2022-11-30 06:59] LABS: HCO3 VBG 24 mmol/L (21-28); Ionized Calcium* 1.19 mmol/L (1.11-1.30); PCO2 VBG 40 mmHG (40-50); PO2 VBG 35.2 mmHG (25-47); pH VBG 7.385 (7.32-7.43)
[2022-11-30 07:10] LABS: Slide Review Reflex No
[2022-11-30 07:51] LABS: Albumin* 2.9 g/dL (3.3-5.0); Chloride* 109 mmol/L (96-114); Sodium* 136 mmol/L (135-149)
[2022-11-30 07:54] LABS: Bilirubin Total* 1.1 mg/dL (0.1-1.5); Creatinine* 0.7 mg/dL (0.5-1.5); Est. Creatinine Clearance* 46.98; Estimated Glomerular Filt Rate 90 ml/min
[2022-11-30 07:55] LABS: Alanine Aminotransferase* 36 U/L (4-50); Alkaline Phosphatase* 181 U/L (40-150); Aspartate Amino Transferase* 63 U/L (12-35); Blood Urea Nitrogen* 20 mg/dL (7-30); Calcium* 8.6 mg/dL (8.4-10.6); Carbon Dioxide* 25 mmol/L (20-32); Glucose* 100 mg/dL (60-115); Total Protein* 6.2 g/dL (6.0-8.3)
[2022-11-30 07:56] LABS: Magnesium* 1.7 mg/dL (1.5-2.6)
[2022-11-30] MEDS: SODIUM CHLORIDE 0.9 % (FLUSH) 10 ML SYRINGE 5 ML IVF ×3 (08:09→21:00)
[2022-11-30 08:19] LABS: C Reactive Protein* 16.5 mg/dL (0.5-1.0); NT Pro B Type NatriureticPept* 2220 pg/mL; Troponin I* 0.07 ng/mL (0.01-0.04)
[2022-11-30] MEDS: levoFLOXacin 500 MG TABLET PO (09:20)
[2022-11-30] MEDS: VANCOMYCIN 125 MG CAPSULE PO ×4 (09:21→21:01)
[2022-11-30] MEDS: ACETAMINOPHEN 500 MG TABLET 1000 MG PO ×3 (09:21→21:00)
[2022-11-30] MEDS: FLUTICASONE PROPIONATE NASAL 1 SPRAY NOSTRIL-B ×2 (09:22→21:00)
[2022-11-30 13:43] LABS: Uric Acid* 3.6 mg/dL (2.2-8.4)
--- NOTE | 2022-11-30 15:15 | PM.IMPN1 ---
Progress Note: A&P Assessment and plan (1) Complicated UTI (urinary tract infection): Problem details: oral levaquin. reviewed c/s. blood culture neg. discharge tomorrow with home health. Status: Acute (2) C. difficile diarrhea: Problem details: oral vanco. mild symptoms. follow. Status: Acute (3) Elevated troponin I level: Problem details: peaked; flat. echo reviewed. demand ischemia. Status: Acute (4) Weakness: Problem details: sepsis related Status: Acute (5) Incontinence of urine: Problem details: trial of flomax Status: Acute (6) Generalized pain: Problem details: scheduled tylenol. topical lidocaine trial. Status: Acute Subjective Date Seen: 11/30/22 Interval history: Daily Progress Note - Hospital Medicine Day #: 2 ABX rec'd ertapenem, azithro and pip/tazo x 1 dose 11/28. He got his first day of IV lequain 11/29, oral levaquin (DAY 2) CC: CDIFF, complicated UTI OVERNIGHT UPDATES FROM STAFF & MED, LAB, IMAGING UPDATES Feels he has turned the corner. Asking questions regarding post discharge care, gout, arthritis, bladder control, preventing UTI. Afebrile since admission Blood pressure 139/68 Pulse in the 90s Respiratory rate 20 Pulse ox 94% on room air 84 kilos Leukocytosis continues to downtrend Hemoglobin is stable Platelet count stable Blood gas looks great this morning 7.38. No CO2 retention. Chemistries are all unremarkable. His lactate is normal. His creatinine is normal. His troponin remains just mildly elevated but stable. His CRP did increase from 8.8-16.5 Blood cultures negative to date. E coli is sensitive to current antibiotic therapy. Echocardiogram done during this admission is reviewed. Normal LV size and function. Mild mitral stenosis, otherwise unremarkable Objective: NAD. looks stated age. Vitals: see above Lungs: Clear. Cardiac: S1S2. Disposition/Potential discharge - Likely to return to previous living situation. Total time is 35 minutes with greater than 50% spent in counseling and coordination of care. Exam Const: Vital Signs, click to edit/add: Vital Signs - 24 hr 11/29/22 16:55 11/29/22 17:00 11/29/22 19:50 Temperature 97.7 F 98.1 F Pulse Rate 83 Pulse Rate [Pulse Oximeter] 92 94 Pulse Rate [Right Brachial] Respiratory Rate 18 18 Blood Pressure [Ri ght Arm] 124/60 134/58 L Pulse Oximetry 96 94 Oxygen Delivery Me thod Room Air Room Air 11/29/22 22:51 11/29/22 22:51 11/30/22 02:11 Temperature 98.2 F 98.0 F Pulse Rate Pulse Rate [Pulse Oximeter] 95 95 97 Pulse Rate [Right Brachial] Respiratory Rate 16 16 20 Blood Pressure [Ri ght Arm] 143/64 H 145/73 H Pulse Oximetry 92 90 Oxygen Delivery Me thod Room Air Room Air 11/30/22 07:00 11/30/22 07:00 11/30/22 07:00 Temperature 98 F Pulse Rate Pulse Rate [Pulse Oximeter] 95 95 Pulse Rate [Right Brachial] Respiratory Rate 22 22 Blood Pressure [Ri ght Arm] 169/83 H Pulse Oximetry 93 93 Oxygen Delivery Me thod Room Air Room Air 11/30/22 09:21 11/30/22 08:00 11/30/22 11:00 Temperature 98 F 97.7 F Pulse Rate 95 Pulse Rate [Pulse Oximeter] 90 Pulse Rate [Right Brachial] 90 Respiratory Rate 20 Blood Pressure [Ri ght Arm] 139/68 Pulse Oximetry 94 Oxygen Delivery Me thod Room Air 11/30/22 12:18 11/30/22 14:03 Temperature 97.7 F 97.6 F Pulse Rate Pulse Rate [Pulse Oximeter] Pulse Rate [Right Brachial] Respiratory Rate Blood Pressure [Ri ght Arm] Pulse Oximetry Oxygen Delivery Me thod Labs Labs: Laboratory Results - last 24 hr 11/30/22 06:30 WBC 18.25 H RBC 3.43 L Hgb 11.9 L Hct 34.7 L MCV 101 H MCH 35 H MCHC 34 Plt Count 154 VBG pH 7.385 VBG pCO2 40 VBG pO2 35.2 VBG HCO3 24 Sodium 136 Potassium 4.0 Chloride 109 Carbon Dioxide 25 BUN 20 Creatinine 0.7 Estimated Creat Clear 46.98 Estimated GFR 90 Glucose 100 Uric Acid 3.6 Calcium 8.6 Ionized Calcium [place] 1.19 Magnesium 1.7 Total Bilirubin 1.1 AST 63 H ALT 36 Alkaline Phosphatase 181 H Troponin I 0.07 H* C-Reactive Protein 16.5 H NT-Pro-B Natriuret Pep 2220 Total Protein 6.2 Albumin 2.9 L Procalcitonin Cancelled
--- NOTE | 2022-11-30 15:27 | PC.NURSE ---
Shift Summary: Pt pleasant throughout shift, asks appropriate questions and is compliant with plan of care. Pt mobility and generalized weakness appeared to improve slightly throughout shift, ambulates with assist of 1 with gait belt and walker. Pain reported between 5-02/15. Scheduled tylenol administered with minimal relief. Pt repositioned and offered pillows. Pt prefers blankets instead of pillows. Pt continent with urinal in bed independently and commode with 1 assist. Pt voiding around 100cc per void with use of urinal independently in bed.
[2022-11-30 15:57] LABS: Procalcitonin* 1.21 ng/mL (<0.50)
[2022-11-30] MEDS: ENOXAPARIN 40 MG/0.4 ML INJ SUBCUT (21:00)
[2022-11-30] MEDS: TAMSULOSIN HCL 0.4 MG CAPSULE PO (21:01)
[2022-11-30] MEDS: MELATONIN 3 MG TABLET PO (21:01)
--- NOTE | 2022-11-30 23:16 | PC.NURSE ---
End of Shift ([id number]): Patient pleasant and cooperative. Afebrile. Up to bathroom and chair with 1 assist, walker and gait belt. Tolerating regular diet with no nausea.
[2022-12-01 02:32] VITALS: BP 119/53; PULSE 97; RESP 18; TEMP 37.1; O2SAT 90
--- NOTE | 2022-12-01 05:07 | PC.NURSE ---
[id number]: Patient pleasant and cooperative. A&O x3. Scheduled Tylenol for chronic back and neck pain. A1/4ww/GB. SOB w/movement. Denies N/V. Afebrile.
[2022-12-01 07:00] VITALS: BP 157/76; PULSE 99; RESP 18; TEMP 37.1; O2SAT 92
[2022-12-01 07:30] LABS: Hematocrit 32.6 % (37.0-53.0); Hemoglobin* 11.4 gm/dL (13.5-17.5); Mean Corpuscular HGB Conc 35 gm/dL (32-36); Mean Corpuscular Hemoglobin 35 pg (26-34); Mean Corpuscular Volume 100 fL (80-100); Platelet Count* 172 K/uL (140-440); Red Blood Count 3.25 m/uL (4.30-5.90); White Blood Count* 11.89 K/uL (4.50-11.00)
[2022-12-01 07:37] LABS: Slide Review Reflex No
[2022-12-01 07:44] LABS: Chloride* 108 mmol/L (96-114); Sodium* 137 mmol/L (135-149)
[2022-12-01 07:45] LABS: Potassium* 3.9 mmol/L (3.6-5.1)
[2022-12-01 07:47] LABS: Creatinine* 0.8 mg/dL (0.5-1.5); Est. Creatinine Clearance* 46.98; Estimated Glomerular Filt Rate 87 ml/min
[2022-12-01 07:48] LABS: Blood Urea Nitrogen* 19 mg/dL (7-30); Carbon Dioxide* 24 mmol/L (20-32); Glucose* 100 mg/dL (60-115)
[2022-12-01 07:49] LABS: Calcium* 8.6 mg/dL (8.4-10.6)
[2022-12-01 08:04] LABS: Procalcitonin* 0.87 ng/mL (<0.50)
[2022-12-01 08:10] LABS: C Reactive Protein* 14.2 mg/dL (0.5-1.0); Troponin I* 0.07 ng/mL (0.01-0.04)
--- NOTE | 2022-12-01 08:41 | PC.NURSE ---
shift note: pt moved to rm [id number] via recliner. Report given to Candice DOZIER
[2022-12-01] MEDS: FLUTICASONE PROPIONATE NASAL 1 SPRAY NOSTRIL-B (08:57)
[2022-12-01] MEDS: VANCOMYCIN 125 MG CAPSULE PO (08:57)
[2022-12-01] MEDS: ACETAMINOPHEN 500 MG TABLET 1000 MG PO (08:57)
[2022-12-01] MEDS: levoFLOXacin 500 MG TABLET PO (08:57)
[2022-12-01] MEDS: LIDOCAINE 5% PATCH 1 PATCH TRANSDERMA (08:58)
--- NOTE | 2022-12-01 11:55 | PC.NURSE ---
Discharge: Patient pleasant and cooperative.? A&O x3.? Scheduled Lidocaine patch applied behind neck for chronic neck pain.? A1/4ww/GB.? SOB w/movement.? Denies N/V.? Afebrile.?Nurse to Nurse attempted to be given to Ivory DOZIER at [facility], she stated she will return my call when available. Pt. was discharged at 1155 accompanied by daughter. Home care will do home PT/OT/bath aide and RN for patient. IV removed from left forearm intact.
--- NOTE | 2022-12-01 16:43 | P.DS_ITS ---
DS: Providers Provider Date Seen: 12/01/22 Date of admission: 11/28/22 16:07 Primary care physician: Hola Fountain DO Admitting Clinician: Edil Mcneal MD Consults: 11/28/22 16:07 Consult to Occupational Therapy [CONS] Routine Comment: Reason(s) for OT Consult:: Evaluate and Treat Any Restrictions?:: No Restrictions Consult to Physical Therapy [CONS] Routine Comment: Reason(s) for PT Consult:: Evaluate and Treat Any Restrictions?:: No Restrictions Attending Physician on discharge: [facility]charge: 12/01/22 DS: Diagnosis Discharge Diagnosis (1) Complicated UTI (urinary tract infection): Status: Acute Problem details: oral levaquin. reviewed c/s. blood culture neg. Complete course oral Levaquin. Home health candidate. (2) C. difficile diarrhea: Status: Acute Problem details: oral vanco. mild symptoms. Improving. Home health candidate (3) Elevated troponin I level: Status: Acute Problem details: peaked; flat. echo reviewed. demand ischemia. Echo 11/29/22 Final Impressions: 1. Normal LV size, normal wall thickness, normal global systolic function with an estimated EF of 65 - 70%. 2. Moderately enlarged left atrium. 3. The aortic valve is trileaflet and sclerotic, no stenosis and no regurgitation. 4. The mitral valve is sclerotic, mild mitral regurgitation. 5. Mitral stenosis with moderately increased mean gradient of 8.8 mmHg at a heart rate of 82. (4) Weakness: Status: Acute Problem details: sepsis related - improving. Patient will be discharging to his independent apartment with 24 hour assistance from family members. He is also qualified to receive home health benefits to include detention, PT/OT, bath aide and medical sales specialist. This consult was completed. (5) Generalized pain: Status: Acute Problem details: scheduled tylenol. topical lidocaine trial. (6) Incontinence of urine: Status: Acute Problem details: trial of flomax DS: Summary Hospital Course Hospital Course: HOSPITALIST DISCHARGE SUMMARY ATTENDING PHYSICIAN: Luly Rocha MD FINAL DIAGNOSIS: Complicated UTI Sepsis C difficile colitis Urinary incontinence Generalized arthritic pain HOSPITAL FOLLOWUP ISSUES: 1. PCP to follow-up on symptoms and follow labs 2. Home health to assist with transition back to independent living. REFERRALS WHILE ADMITTED: PT and OT REFERRALS AFTER DISCHARGE: Home health BRIEF HOSPITAL COURSE: Preethi is an 87-year-old gentleman who lives at [facility] independently. He presents with sepsis consistent with a complicated UTI. He ultimately had negative blood cultures but appeared bacteremic at the time of presentation with rigors and fever. His urine culture did grow E coli. Within the 1st 24 hours of admission his diarrhea increased and he was diagnosed with C diff colitis. He bounced back really well. He was off of oxygen and ambulating in the room. He was on oral Levaquin and oral vancomycin. He had had a mildly bumped troponin and this was flat. We followed up with an echocardiogram which was reassuring. He never had any evidence of delirium or dementia. A very supportive family. I had a long discussion with his daughter, Danitza, who would be available along with her brothers to be a 24 hour support network for their dad. He also qualified for home health and I was able to set up detention, OT/PT, bath aide and medical social work. Also discussed direct admission or delayed direct admission to the care center at [facility]. The daughter was comfortable taking her dad home and while there is a moderate risk for bounce back I think he has the support to return to independent living. SUBSTANTIVE NOTATIONS ON IMAGING, LAB, MICROBIOLOGY/PATHOLOGY STUDIES: E coli on urine culture Unremarkable echocardiogram Negative blood culture Positive C diff toxin DISCHARGE MEDICATIONS: See Reconciled list - SIGNIFICANT CHANGES: Completing oral course of Levaquin Completing oral course of vancomycin REVIEW OF SYSTEMS No new chest pain or dyspnea Pain controlled No bowel incontinence within the last 24 hours of admission Tolerating diet challenge PHYSICAL EXAM: CONSTITUTIONAL: Chronically weak and moves slowly but is continent and insightful. No evidence of delirium. VITAL SIGNS: see record. HEENT: Normocephalic, atraumatic. PERRL, EOMI, conjunctivae pink, no scleral icterus. Ears and nose externally normal. Pharynx normal. NECK: No JVD. No carotid bruit, no thyromegaly, no adenopathy. CHEST: Clear to auscultation bilaterally. HEART: S1 and S2 normal. Edema ABDOMEN: Soft, nontender. Normal bowel sounds. MUSCULOSKELETAL: No gross joint deformity or swelling. NEURO: Cranial nerves intact. Grossly intact. No asymmetric findings. SKIN: No rashes, petechiae, concerning changes PSYCHIATRIC: Mood euthymic. DISPOSITION: Home with daughter Time spent on discharge 37 minutes. Time Spent with Patient Time attestation: Total time spent providing and/or coordinating discharge services: Exam Const: Vital Signs, click to edit/add: Vital Signs - 24 hr 11/30/22 20:55 11/30/22 23:00 11/30/22 23:00 Temperature 97.9 F Pulse Rate 82 Pulse Rate [Pulse Oximeter] 103 H Pulse Rate [Right Brachial] Respiratory Rate 22 22 Blood Pressure [Ri ght Arm] 134/67 Pulse Oximetry 95 95 Oxygen Delivery Me thod Room Air Room Air 11/30/22 23:00 12/01/22 02:32 12/01/22 07:00 Temperature 98.7 F Pulse Rate 99 Pulse Rate [Pulse Oximeter] 97 Pulse Rate [Right Brachial] 83 Respiratory Rate 20 18 Blood Pressure [Ri ght Arm] 119/53 L Pulse Oximetry 90 Oxygen Delivery Me thod Room Air 12/01/22 07:00 12/01/22 07:00 12/01/22 07:00 Temperature 98.7 F Pulse Rate Pulse Rate [Pulse Oximeter] 99 99 Pulse Rate [Right Brachial] Respiratory Rate 18 18 18 Blood Pressure [Ri ght Arm] 157/76 H Pulse Oximetry 92 92 Oxygen Delivery Me thod Room Air Room Air DS: Data Data Completed and Pending Labs on day of discharge: Labs from last 24 hours 12/01/22 06:34 WBC 11.89 H RBC 3.25 L Hgb 11.4 L Hct 32.6 L MCV 100 MCH 35 H MCHC 35 Plt Count 172 Sodium 137 Potassium 3.9 Chloride 108 Carbon Dioxide 24 BUN 19 Creatinine 0.8 Estimated Creat Clear 46.98 Estimated GFR 87 Glucose 100 Calcium 8.6 Troponin I 0.07 H* C-Reactive Protein 14.2 H Procalcitonin 0.87 H Preliminary micro results at discharge 11/28/22 14:40 Blood Culture - Preliminary Blood NO GROWTH AFTER 72 HOURS 11/28/22 14:04 Blood Culture - Preliminary Blood NO GROWTH AFTER 72 HOURS Discharge Plan Discharge Disposition: Home w/ Parent or Adult Date of Admission: 11/28/22 16:07 Attending Provider on Discharge: Luly Rocha Primary Care Provider: Hola Fountain Anticipated Discharge Date/Time: 12/01/22 10:40 Discharge Medications: New vancomycin 125 mg Capsule 125 mg PO QID Qty: 32 0RF tamsulosin 0.4 mg Capsule 0.4 mg PO HS Qty: 30 0RF lidocaine 5 % Adhesive Patch,Medicated 1 patch transdermal DAILY Qty: 30 0RF levofloxacin 500 mg Tablet 500 mg PO Q24H Qty: 5 0RF Continued cetirizine 10 mg tablet 10 mg PO DAILY valacyclovir 1 gram tablet 2,000 mg PO BID PRN alendronate 70 mg tablet 70 mg PO HOPE Rx Instructions: SUNDAYS lisinopril 5 mg tablet 5 mg PO DAILY fluticasone propionate 50 mcg/actuation spray,suspension 1 spray INTRANASAL BID acetaminophen 500 mg tablet 1,000 mg PO BID Eye Multivitamin 2,148 mcg-113 mg-45 mg-17.4mg tablet 1 tab PO DAILY ibuprofen [Advil] 200 mg tablet 200 mg PO QID PRN Discharge Orders: Discharge Order (Routine); Ordered 12/01/22 Ordered By: Luly Rocha Patient Education: Lidocaine (On the skin), Levofloxacin (By mouth), Tamsulosin (By mouth), Vancomycin (By mouth) Additional Instructions: Home Health qualified for Longterm, Bath Aide, PT/OT. Need: med manage ment for acute CDIFF colitis (vancomycin 125mg every six hours for next 8 days), me management for complicated UTI and sepsis (Levaquin). Recommend UA at follow-up appt and recommend a surveillance plan for reoccurring UTI. Activity Level: Activity as Tolerated Discharge Diet: Regular Follow Up Appointments: [facility] [Outside] - 12/08/22 2:30 pm ([facility] with Dr. Calloway for follow-up.) Hola Fountain DO [Primary Care Provider] - 12/08/22 2:30 pm Forms: [employer] Info Instructions
== END 2022-12-01 11:55 | disposition home or self-care (01) | DRG 871 ==
LOC: ED 14:16 → MEDSURG 16:05
PROVIDERS: Family Medicine; Admitting Provider Internal Medicine; Emergency Provider Family Medicine; PCP Family Medicine; Visit Provider Internal Medicine
DX: A41.9 Sepsis, unspecified organism (principal); I21.A1 Myocardial infarction type 2; N39.0 Urinary tract infection, site not specified; A04.72 Enterocolitis due to Clostridium difficile, not specified as recurrent; E86.0 Dehydration; I10 Essential (primary) hypertension; Z86.718 Personal history of other venous thrombosis and embolism; Z79.01 Long term (current) use of anticoagulants; G47.33 Obstructive sleep apnea (adult) (pediatric); F32.9 Major depressive disorder, single episode, unspecified; F17.200 Nicotine dependence, unspecified, uncomplicated; Z85.828 Personal history of other malignant neoplasm of skin; B96.89 Other specified bacterial agents as the cause of diseases classified elsewhere
CPT/HCPCS: 36415; 71045; 80048; 80053; 80069; 80076; 81001; 82330; 82803; 83605; 83735; 83880; 84075; 84145; 84450; 84484; 84550; 85025; 85027; 85610; 86140; 87040; 87086; 87186; 87493; 87631; 93005; 93306; 94761; 97110; 97112; 97116; 97162; 97165; 97530; 97535; 99285; A9270; J1335; J1650; J1956; J7030; J7120

== ENCOUNTER 2023-01-12 03:49 | Outpatient (CLI) | payer MEDICARE, SELFPAY | END 2023-01-12 03:50 | disposition home or self-care (01) | LOC: AMB 01-13 08:52 | PROVIDERS: PCP Internal Medicine; Visit Provider Family Medicine | DX: M54.9 Dorsalgia, unspecified (principal) | CPT/HCPCS: A0425; A0429 ==

== ENCOUNTER 2023-01-15 10:08 | Outpatient (CLI) | payer MEDICARE, SELFPAY | END 2023-01-15 10:09 | disposition home or self-care (01) | LOC: AMB 01-17 05:34 | PROVIDERS: PCP Internal Medicine; Visit Provider Family Medicine | DX: R53.1 Weakness (principal) | CPT/HCPCS: A0998 ==

== ENCOUNTER 2023-02-24 18:58 | Outpatient (CLI) | payer MEDICARE, SELFPAY | END 2023-02-24 18:59 | disposition home or self-care (01) | LOC: AMB 02-25 12:52 | PROVIDERS: PCP Internal Medicine; Visit Provider Family Medicine | DX: S39.92XA Unspecified injury of lower back, initial encounter (principal); R53.1 Weakness; W18.30XA Fall on same level, unspecified, initial encounter; Y92.129 Unspecified place in nursing home as the place of occurrence of the external cause | CPT/HCPCS: A0425; A0429 ==

== ENCOUNTER 2023-02-24 19:13 | Observation (INO) | payer MEDICARE, SELFPAY ==
[2023-02-24] VITALS (8 sets, daily range): BP systolic 123–166; BP diastolic 55–96; PULSE 70–100; RESP 18; TEMP 37; O2SAT 92–94; BMI 23.5
--- NOTE | 2023-02-24 19:30 | CRLHL7_ITS ---
For Patients: As a result of the Cures Act, medical imaging exams and procedure reports are released immediately into your electronic medical record. You may view this report before your referring provider. If you have questions, please contact your health care provider. INDICATION: Fall with weakness. TECHNIQUE: CT cervical spine without contrast. Permanently recorded images are archived. COMPARISON: None. FINDINGS: Vertebrae: There is accentuation of the cervical lordosis and thoracic kyphosis. Chronic compression fracture of T2. No acute fracture or suspicious osseous lesion. Discs and facet joints: Mild diffuse degenerative changes of the disc spaces and moderate bilateral multilevel degenerative changes of the facet joints. No osseous spinal canal narrowing. Extraspinal findings: Prevertebral soft tissues, visualized airway, and visualized lungs are unremarkable apart from a partially imaged left chest pacemaker. IMPRESSION: No acute bony abnormality. Chronic T2 compression fracture. [id number] multilevel cervical spondylosis. Please note that all CT scans at this facility use dose modulation, iterative reconstruction, and/or weight-based dosing when appropriate to reduce radiation dose to as low as reasonably achievable. Dictated by Lamonte Sweeney MD @ 02/24/2023 10:19:28 PM (Electronically Signed)
--- NOTE | 2023-02-24 19:30 | CRLHL7_ITS ---
For Patients: As a result of the Century Cures Act, medical imaging exams and procedure reports are released immediately into your electronic medical record. You may view this report before your referring provider. If you have questions, please contact your health care provider. INDICATION: Fall with weakness. TECHNIQUE: CT chest, abdomen and pelvis acquired with 74 cc of Isovue 370 IV contrast. Permanently recorded images are archived. COMPARISON: None. FINDINGS: CHEST: Cardiovascular structures: Heart size is normal. Thoracic aorta and main pulmonary artery are normal in caliber. Left chest pacemaker. No pulmonary embolism. No pericardial effusion. Mediastinum and kirstin: No mass or adenopathy. Lungs and pleura: Mild bilateral peripheral fibrotic changes. Mild right lower lobe posterior dependent atelectasis versus fibrotic changes. No focal consolidation, pleural effusion, or pneumothorax. Chest wall and axilla: No mass or adenopathy. Bones: Mildly displaced, acute right posterior lateral 10th and 11th ribs. Chronic compression fractures of T2, T9, T11, and T12. Osteopenia ABDOMEN AND PELVIS: Liver: Unremarkable. No sign of acute injury. Gallbladder and bile ducts: Hydropic gallbladder. No inflammation or biliary ductal dilatation Pancreas: Unremarkable. Spleen: Unremarkable. No sign of acute injury. Adrenal glands: Unremarkable. Kidneys, Ureters, and Bladder: 6 mm nonobstructing right nephrolith. Bilateral posterior lateral bladder thickening, measuring up to 3.7 cm on the left. There are multiple posterior dependent stones within the bladder lumen and left diverticulum. GI tract: Diverticulosis without pericolonic inflammation. No obstruction. Normal appendix. Vascular structures: Normal caliber abdominal aorta with mild atherosclerotic calcification. Mesenteric arteries are patent. There are multiple collateral venous structures in the pelvis Lymph nodes: Unremarkable. Miscellaneous: Unremarkable. No free air or significant free fluid. Pelvic Organs: Status post hysterectomy. Bones: Chronic compression fracture of L1. Osteopenia. IMPRESSION: Acute, mildly displaced right posterior lateral 10th and 11th rib fractures. Chronic compression fractures of the T2, T9, T11, T12, and L1 vertebral bodies in the setting of osteopenia. No acute findings within the abdomen or pelvis. 6 mm nonobstructing right nephrolith. Bilateral bladder diverticula with multiple stones in the bladder lumen and left bladder diverticulum. Please note that all CT scans at this facility use dose modulation, iterative reconstruction, and/or weight-based dosing when appropriate to reduce radiation dose to as low as reasonably achievable. Dictated by Lamonte Sweeney MD @ 02/24/2023 10:08:08 PM (Electronically Signed)
--- NOTE | 2023-02-24 19:30 | CRLHL7_ITS ---
For Patients: As a result of the Century Cures Act, medical imaging exams and procedure reports are released immediately into your electronic medical record. You may view this report before your referring provider. If you have questions, please contact your health care provider. INDICATION: Fall with weakness. TECHNIQUE: Head CT without contrast. COMPARISON: None. FINDINGS: Brain parenchyma and extra-axial spaces: Moderate ventriculomegaly. [id number] global brain parenchymal volume loss. Cavum septum pellucidum et vergae there are nonspecific low attenuation white matter changes consistent with chronic microvascular disease. No sign of mass, hemorrhage, or midline shift. Skull base and calvarium: The visualized paranasal sinuses and mastoid air cells demonstrate no acute or significant findings. Thinning of the ocular lenses bilaterally. No skull fractures. Degenerative changes of the temporomandibular joints. IMPRESSION: No evidence of an acute intracranial abnormality. Moderate ventriculomegaly. Brain parenchyma findings consistent with chronic small vessel ischemic disease on a background of age-related involutional change. Please note that all CT scans at this facility use dose modulation, iterative reconstruction, and/or weight-based dosing when appropriate to reduce radiation dose to as low as reasonably achievable. Dictated by Lamonte Sweeney MD @ 02/24/2023 10:15:18 PM (Electronically Signed)
--- NOTE | 2023-02-24 19:30 | CRLHL7_ITS ---
For Patients: As a result of the Cures Act, medical imaging exams and procedure reports are released immediately into your electronic medical record. You may view this report before your referring provider. If you have questions, please contact your health care provider. INDICATION: Fall with weakness. TECHNIQUE: Left shoulder 3 views. COMPARISON: None. FINDINGS: No acute fracture or dislocation. Mild AC and glenohumeral joint degenerative changes. Soft tissues are unremarkable. IMPRESSION: No acute osseous abnormalities. Dictated by Tio Peña MD @ 02/24/2023 9:59:53 PM (Electronically Signed)
[2023-02-24 19:58] LABS: Basophils Percent Auto 0.2 % (0.0-3.0); Eosinophils Percent Auto 1.6 % (0.0-7.0); Immature Granulocytes Pct Auto 0.7 %; Lymphocytes Percent Auto 12.6 % (20-44); Mean Corpuscular HGB Conc 34 gm/dL (32-36); Mean Corpuscular Hemoglobin 34 pg (26-34); Mean Corpuscular Volume 100 fL (80-100); Monocytes Percent Auto 10.4 % (0.0-11.0); Neutrophils Percent Auto 74.5 % (42.0-72.0); Platelet Count* 211 K/uL (140-440); RDW Coefficient of Variation % 13.8 % (11.5-15.5); Red Blood Count 3.49 m/uL (4.30-5.90); White Blood Count* 12.18 K/uL (4.50-11.00)
--- NOTE | 2023-02-24 20:06 | ED.GENADULT ---
HPI - General Adult General Time Seen by Provider: 19:50 Date Seen: 02/24/23 Chief complaint: Fall/Minor Trauma Stated complaint: Fall Time Seen by Provider: 02/24/23 19:20 Source: patient Mode of arrival: ambulatory Limitations: no limitations History of Present Illness HPI narrative: Patient is a 88-year-old male with history of COPD, hypertension, generally frail presenting to the emergency department from his residential for a fall. Patient states he is feeling weaker than normal was walking with his walker when he fell down. Denies any dizziness and lightheadedness and just states he was too weak to stay up himself. Staff state they heard him fall and went to him immediately. Patient does have some bruising in his right flank in left hip. He is complaining of pain in his flanks but states this has been a chronic issue that has been gradually getting worse. Has also admits to low back pain but also states this is chronic from previous compression fractures. Denies hitting his head. Does state he has some left shoulder pain to palpation at this time. Denies dysuria, chest pain, abdominal pain, shortness of breath, headache, vision changes, numbness, diarrhea, constipation. States he does not think he is eating enough at his residential. Related Data Home Medications Medication Instructions Recorded Confirmed acetaminophen 500 mg tablet 1,000 mg PO BID 11/28/22 11/28/22 alendronate 70 mg tablet 70 mg PO HOPE 11/28/22 11/28/22 ibuprofen 200 mg tablet (Advil) 200 mg PO QID PRN 11/28/22 11/28/22 vitamins A,C,I-pjnp-yqsgqx 2,148 1 tab PO DAILY 11/28/22 11/28/22 mcg-113 mg-45 mg-17.4 mg tablet (Eye Multivitamin) cranberry 400 mg capsule 400 mg PO QDAY 01/07/23 01/07/23 cetirizine 10 mg tablet 10 mg PO DAILY PRN 01/19/23 fluticasone propionate 50 1 spray intranasal BID PRN 01/19/23 mcg/actuation nasal spray,suspension Previous Rx's Medication Instructions Recorded tizanidine 2 mg tablet 2 mg PO Q8H PRN muscle spasticity 01/12/23 #12 tabs oxycodone 5 mg capsule 5 mg PO Q6H #90 caps 01/19/23 Allergies Allergy/AdvReac Type Severity Reaction Status Date / Time Penicillins Allergy Mild Rash Verified 02/24/23 21:32 escitalopram [From Lexapro] Allergy Unknown Ear Verified 02/24/23 21:32 Pressure amoxicillin Allergy Rash Verified 02/24/23 21:32 Review of Systems Status of ROS: Reports: 10 or more systems reviewed and unremarkable except as noted in History and below [facility] Medical History (Updated 02/24/23 @ 23:16 by Aram Sawyer DO) History of Clostridioides difficile infection (11/29/22) ?Z86.19 - Personal history of other infectious and parasitic diseases (ICD-10) History of deep venous thrombosis (DVT) of distal vein of left lower extremity ?Z86.718 - Personal history of other venous thrombosis and embolism (ICD-10) History of Mobitz type II block ?Z86.79 - Personal history of other diseases of the circulatory system (ICD-10) Surgical History (Updated 01/07/23 @ 15:00 by Chetna Carmona MD) Basal cell carcinoma (BCC) ?C44.91 - Basal cell carcinoma of skin, unspecified (ICD-10) S/P YAG capsulotomy, bilateral ?Z98.890 - Other specified postprocedural states (ICD-10) H/O wisdom tooth extraction ?K08.409 - Partial loss of teeth, unspecified cause, unspecified class (ICD-10) S/P tonsillectomy ?Z90.89 - Acquired absence of other organs (ICD-10) Status post cataract extraction of both eyes with insertion of intraocular lens ?Z98.41 - Cataract extraction status, right eye (ICD-10) ?Z98.42 - Cataract extraction status, left eye (ICD-10) ?Z96.1 - Presence of intraocular lens (ICD-10) Status post placement of cardiac pacemaker ?Z95.0 - Presence of cardiac pacemaker (ICD-10) Family History (Updated 01/18/23 @ 11:25 by Michelle Rutherford) Mother Glaucoma Father Heart failure Sister Breast cancer Social History Highest level of school completed/degree received: Master's degree Smoking Status: Former smoker Second hand tobacco smoke exposure: No How often do you have a drink containing alcohol: never How often do you have six or more drinks on one occasion: Never AUDIT-C Alcohol total score: 0 Non-prescribed substance use: denies use Caffeine: Yes (2 cups) Little interest or pleasure in doing things: several days Feeling down, depressed, or hopeless: several days service: No Exam Narrative: Exam Narrative: Const: Well-nourished, Well-developed, in mild distress Eyes: PERRL, no conjunctival injection, and symmetrical lids ENMT: Atraumatic external nose and ears. Moist mucous membranes. Neck: Symmetric, trachea midline, No thyromegaly. CVS: RRR, No murmurs or gallops. Peripheral pulses 2+ and equal in all extremities RESP: Unlabored respiratory effort. Clear to auscultation bilaterally. GI: Nontender/Nondistended, No rebound or guarding.Tenderness to palpation noted to right flank. MSK:Extremities w/o deformity, Normal Active ROM. Tenderness to midline neck and left shoulder Skin: Warm, Dry. No rashes or lesions. Bruising noted to right flank Neuro: Normal Muscle tone, No focal neurological deficits. Psych: Awake, Alert, & Oriented x3. Appropriate mood and affect. Const: Vital Signs, click to edit/add: Vital Signs - 24 hr 02/24/23 19:25 02/24/23 19:25 02/24/23 19:30 Temperature 98.6 F Pulse Rate [Apical ] 70 80 97 Respiratory Rate 18 18 18 Blood Pressure [Ri ght Upper Arm] 131/59 L 123/65 145/71 H Pulse Oximetry 94 94 93 Oxygen Delivery Me thod Room Air Room Air Room Air 02/24/23 19:45 02/24/23 20:00 02/24/23 21:30 Temperature Pulse Rate [Apical ] 87 78 90 Respiratory Rate 18 18 18 Blood Pressure [Ri ght Upper Arm] 136/55 L 128/63 154/88 H Pulse Oximetry 93 94 93 Oxygen Delivery Me thod Room Air Room Air 02/24/23 21:45 02/24/23 22:00 02/24/23 22:15 Temperature Pulse Rate [Apical ] 100 Respiratory Rate 18 18 Blood Pressure [Ri ght Upper Arm] 157/76 H 166/81 H 164/96 H Pulse Oximetry 92 93 Oxygen Delivery Me thod Room Air Room Air Course Vital Signs Vital signs: Initial Vital Signs Temperature 98.6 F 02/24/23 19:25 Temperature Source Temporal Artery Scan 02/24/23 19:25 Pulse Rate 70 02/24/23 19:25 Respiratory Rate 18 02/24/23 19:25 Blood Pressure 131/59 L 02/24/23 19:25 Blood Pressure Mean 83 02/24/23 19:25 Blood Pressure Position Supine 02/24/23 19:25 Pulse Oximetry 94 02/24/23 19:25 Oxygen Delivery Method Room Air 02/24/23 19:25 Vital Signs Temperature 98.6 F 02/24/23 19:25 Pulse Rate 70 02/24/23 19:25 Respiratory Rate 18 02/24/23 19:25 Blood Pressure 131/59 L 02/24/23 19:25 Pulse Oximetry 94 02/24/23 19:25 Oxygen Delivery Method Room Air 02/24/23 19:25 Temperature 98.6 F 02/24/23 19:25 Pulse Rate 100 02/24/23 22:15 Respiratory Rate 18 02/24/23 22:15 Blood Pressure 164/96 H 02/24/23 22:15 Pulse Oximetry 93 02/24/23 22:15 Oxygen Delivery Method Room Air 02/24/23 22:15 Medical Decision Making MDM Narrative Medical decision making narrative: Patient is a 88-year-old male presenting emergency department after a fall. Patient states he has been having increasing weakness now. He states he he feels like he may not be getting enough to eat. He lives in an independent assisted living apartment. Patient states today while he was walking with his walker in his apartment he felt very weak and he fell down. Denies any lightheadedness or dizziness preceding the events. Patient does have chronic compression fractures. He is currently complaining of pain to his right flank. Because of his weakness a cardiac workup was ordered along with a urinalysis. CBC, CMP, troponin, EKG all in were included. Having some pain to his left shoulder an x-ray was ordered. Due to his pain location would do CT scan of the abdomen and pelvis along with a CT scan of the head and cervical spine. He is not really having any thoracic symptoms at this time but due to his weakness and since waking the other scans we will do a chest CT look for signs of pneumonia and possible other injuries. Patient's lab work returned showing a white blood cell count of 12.3. He is intermittently tachycardic whenever he moves. This appears to be more pain related. He did have 1 episode recent drop down to 84% on room air quickly jumped up in is now satting mid 90s on room air. There is no clear signs of a UTI at this time. His sodium is low compared to his baseline. Usually he is in the upper 130s to low 140s. Today is 131. He does meet SIRS criteria and blood cultures and lactic acid were ordered. We did give him 1 L of normal saline. Are not believe he needs more than that. His elevated heart rate is likely secondary to pain and there are no clear signs of infection at this time. Imaging returned showing a new rib fractures on the right 10th and 11th ribs consistent where his pain is. He also has nonobstructing nephrolithiasis. CT brain and cervical spine show no acute abnormalities. Left shoulder x-ray shows no acute abnormalities. I spoke to the patient about discharge versus admission. We did walk the patient while he was able to walk he says he was feeling weak still and was concerned he will fall. Since he has been sepsis criteria lactic acid was ordered and was of a 3.0. Again there is no clear signs of infection and this might be from dehydration. Patient is currently getting hydrated. Patient is admitted to the hospitalist service through of the bowel. I spoke to Dr. Wilburn. Lab Data Labs: Lab Results 02/24/23 02/24/23 02/24/23 Range/Units 19:52 21:32 22:55 WBC 12.18 H (4.50-11.00) K/uL RBC 3.49 L (4.30-5.90) m/uL Hgb 12.0 L (13.5-17.5) gm/dL Hct 35.0 L (37.0-53.0) % MCV 100 (80-100) fL MCH 34 (26-34) pg MCHC 34 (32-36) gm/dL RDW Coeff of Sveta 13.8 (11.5-15.5) % Plt Count 211 (140-440) K/uL Neut % (Auto) 74.5 H (42.0-72.0) % Lymph % (Auto) 12.6 L (20-44) % [place] % (Auto) 10.4 (0.0-11.0) % Eos % (Auto) 1.6 (0.0-7.0) % Baso % (Auto) 0.2 (0.0-3.0) % Neut # (Auto) 9.10 H (1.7-7.0) K/uL Lymph # (Auto) 1.50 (0.90-2.90) K/uL [place] # (Auto) 1.30 H (0.00-0.90) K/UL Eos # (Auto) 0.20 (0.00-0.50) K/uL Baso # (Auto) 0.00 (0.00-0.30) K/uL Abs Immat Gran (auto) 0.10 (0.00-0.30) K/uL Imm/Tot Granulo (auto) 0.7 % Sodium 131 L (135-149) mmol/L Potassium 3.7 (3.6-5.1) mmol/L Chloride 97 (96-114) mmol/L Carbon Dioxide 23 (20-32) mmol/L BUN 18 (7-30) mg/dL Creatinine 1.0 (0.5-1.5) mg/dL Estimated Creat Clear 49.58 Estimated GFR 73 ml/min Glucose 108 (60-115) mg/dL Lactate 3.0 H (0.5-1.9) mmol/L Calcium 9.3 (8.4-10.6) mg/dL Total Bilirubin 0.9 (0.1-1.5) mg/dL AST 55 H (12-35) U/L ALT 25 (4-50) U/L Alkaline Phosphatase 134 (40-150) U/L Troponin I 0.03 (0.01-0.04) ng/mL Total Protein 7.1 (6.0-8.3) g/dL Albumin 3.5 (3.3-5.0) g/dL Urine Color Yellow (Yellow) Urine Appearance Clear (Clear) Urine pH 5.5 (5.0-8.5) Ur Specific [place] 1.015 (1.000-1.030) Urine Protein Negative (Negative) Urine Glucose (UA) Negative (Negative) Urine Ketones 1+ A (Negative) Urine Blood Negative (Negative) Urine Nitrite Negative (Negative) Urine Bilirubin Negative (Negative) Urine Urobilinogen 0.2 (0.2-1.0) Ur Leukocyte Esterase Negative (Negative) Urine RBC 0-2 (0-2) Urine WBC 0-2 (0-5) Ur Squamous Epith Cells None (None-Few) Urine Bacteria None (None) ECG Data Attestation: I personally reviewed and interpreted this ECG as follows: (Atrial sensed ventricular paced rhythm, no signs of ST or T-wave abnormalities. Appears similar to previous EKG) Prior ECG tracings: available for review (11/28/2022) Discharge Plan Discharge Clinical Impression: Weakness Closed rib fracture Qualifiers: Encounter type: initial encounter Rib fracture type: multiple ribs Laterality: right Qualified Code(s): S22.41XA - Multiple fractures of ribs, right side, initial encounter for closed fracture Patient Disposition: Admitted As Observation Condition: Stable
[2023-02-24 20:09] LABS: Chloride* 97 mmol/L (96-114)
[2023-02-24 20:10] LABS: Albumin* 3.5 g/dL (3.3-5.0); Potassium* 3.7 mmol/L (3.6-5.1); Sodium* 131 mmol/L (135-149)
[2023-02-24 20:13] LABS: Alanine Aminotransferase* 25 U/L (4-50); Alkaline Phosphatase* 134 U/L (40-150); Aspartate Amino Transferase* 55 U/L (12-35); Bilirubin Total* 0.9 mg/dL (0.1-1.5); Blood Urea Nitrogen* 18 mg/dL (7-30); Carbon Dioxide* 23 mmol/L (20-32); Est. Creatinine Clearance* 49.58; Estimated Glomerular Filt Rate 73 ml/min; Glucose* 108 mg/dL (60-115); Total Protein* 7.1 g/dL (6.0-8.3)
[2023-02-24 20:14] LABS: Calcium* 9.3 mg/dL (8.4-10.6)
[2023-02-24 20:25] LABS: Troponin I* 0.03 ng/mL (0.01-0.04)
[2023-02-24 20:31] LABS: Slide Review Reflex No
[2023-02-24 21:40] LABS: Appearance Urine Clear (Clear); Bilirubin Urine Negative (Negative); Blood Urine Negative (Negative); Color Urine Yellow (Yellow); Glucose Urine Negative (Negative); Ketones Urine 1+ (Negative); Leukocyte Esterase Urine Negative (Negative); Nitrite Urine Negative (Negative); Protein Urine Negative (Negative); Specific Gravity Urine 1.015 (1.000-1.030); Urobilinogen Urine 0.2 (0.2-1.0); pH Urine 5.5 (5.0-8.5)
[2023-02-24 21:54] LABS: RBC Urine 0-2 (0-2); WBC Urine 0-2 (0-5)
--- NOTE | 2023-02-24 22:23 | PC.NURSE ---
[facility] RN called, updated on patient status
[2023-02-24] MEDS: 0.9 % SODIUM CHLORIDE 1000 ml 1,000 ML IV (23:01)
[2023-02-24] MEDS: KETOROLAC 15 MG/ML inj IVP (23:01)
--- NOTE | 2023-02-24 23:06 | PC.NURSE ---
updated serjio RN information architect for [facility] with patient plan.
[2023-02-25] VITALS (9 sets, daily range): BP systolic 94–173; BP diastolic 43–86; PULSE 71–104; RESP 16–18; TEMP 36.1–36.6; O2SAT 89–95; BMI 23.3
--- NOTE | 2023-02-25 00:13 | PC.NURSE ---
repot to Kati DOZIER, patient sent to room 251 on med/surg
--- NOTE | 2023-02-25 00:49 | PM.IMCN1 ---
Date of Consult Patient: [facility] Patient Consult date: 02/25/23 Requesting Physician: Other Primary Care Provider: Chetna Carmona MD Consult Narrative Reason for consult: Luigi Admit Narrative: Veronica Toro is a 88 year old male who lives at [facility] in Assisted Living. Pt gets around with his walker. Pt fell today in his apartment. The exact details are unclear. He states that he just felt weak. He presented to the ED where CT of the head showed only small vessel changes. CT of the cervical spine was negative but did show an old T2 compression fracture. CT of the chest abd and pelvis was most significant for old rib fractures of r posterior lateral 10 and 11. Pt also was noted to have old compression fractures of T2, 9, 11 and 12 as well as general osteoporosis. Pt was noted to have an elevated WBC of 12.18 and a Lactate of 3.0. No source of infection was found. Pt was given IV hydration in the ED. Pt admitted for further care and possible need for higher level care at home. Review of Systems Status of ROS: Reports: 10 or more systems reviewed and unremarkable except as noted in History and below [facility] Medical History History of Clostridioides difficile infection (11/29/22) ?Z86.19 - Personal history of other infectious and parasitic diseases (ICD-10) History of deep venous thrombosis (DVT) of distal vein of left lower extremity ?Z86.718 - Personal history of other venous thrombosis and embolism (ICD-10) History of Mobitz type II block ?Z86.79 - Personal history of other diseases of the circulatory system (ICD-10) Surgical History Basal cell carcinoma (BCC) ?C44.91 - Basal cell carcinoma of skin, unspecified (ICD-10) S/P YAG capsulotomy, bilateral ?Z98.890 - Other specified postprocedural states (ICD-10) H/O wisdom tooth extraction ?K08.409 - Partial loss of teeth, unspecified cause, unspecified class (ICD-10) S/P tonsillectomy ?Z90.89 - Acquired absence of other organs (ICD-10) Status post cataract extraction of both eyes with insertion of intraocular lens ?Z98.41 - Cataract extraction status, right eye (ICD-10) ?Z98.42 - Cataract extraction status, left eye (ICD-10) ?Z96.1 - Presence of intraocular lens (ICD-10) Status post placement of cardiac pacemaker ?Z95.0 - Presence of cardiac pacemaker (ICD-10) Family History Mother Glaucoma Father Heart failure Sister Breast cancer Social History Highest level of school completed/degree received: Master's degree Smoking Status: Former smoker Second hand tobacco smoke exposure: No How often do you have a drink containing alcohol: never How often do you have six or more drinks on one occasion: Never AUDIT-C Alcohol total score: 0 Non-prescribed substance use: denies use Caffeine: Yes (2 cups) Little interest or pleasure in doing things: several days Feeling down, depressed, or hopeless: several days service: No Meds Home Medications and Allergies Home Medications Medication Instructions Recorded Confirmed Type acetaminophen 500 mg tablet 1,000 mg PO BID 11/28/22 11/28/22 History alendronate 70 mg tablet 70 mg PO HOPE 11/28/22 11/28/22 History ibuprofen 200 mg tablet (Advil) 200 mg PO QID PRN 11/28/22 11/28/22 History vitamins A,C,S-pilw-mifvsn 2,148 1 tab PO DAILY 11/28/22 11/28/22 History mcg-113 mg-45 mg-17.4 mg tablet (Eye Multivitamin) cranberry 400 mg capsule 400 mg PO QDAY 01/07/23 01/07/23 History cetirizine 10 mg tablet 10 mg PO DAILY PRN 01/19/23 History fluticasone propionate 50 1 spray intranasal BID PRN 01/19/23 History mcg/actuation nasal spray,suspension Allergies Allergy/AdvReac Type Severity Reaction Status Date / Time Penicillins Allergy Mild Rash Verified 02/24/23 21:32 escitalopram [From Lexapro] Allergy Unknown Ear Verified 02/24/23 21:32 Pressure amoxicillin Allergy Rash Verified 02/24/23 21:32 Exam Narrative: Exam Narrative: Gen: Frail but NAD HEENT no obvious trauma Heart IMAN Lungs cl Abd nondistended. Ext: Frail but moves all Const: Vital Signs, click to edit/add: Vital Signs - 24 hr 02/24/23 19:25 02/24/23 19:25 02/24/23 19:30 Temperature 98.6 F Pulse Rate [Apical ] 70 80 97 Respiratory Rate 18 18 18 Blood Pressure [Ri ght Upper Arm] 131/59 L 123/65 145/71 H Pulse Oximetry 94 94 93 Oxygen Delivery Me thod Room Air Room Air Room Air 02/24/23 19:45 02/24/23 20:00 02/24/23 21:30 Temperature Pulse Rate [Apical ] 87 78 90 Respiratory Rate 18 18 18 Blood Pressure [Ri ght Upper Arm] 136/55 L 128/63 154/88 H Pulse Oximetry 93 94 93 Oxygen Delivery Me thod Room Air Room Air 02/24/23 21:45 02/24/23 22:00 02/24/23 22:15 Temperature Pulse Rate [Apical ] 100 Respiratory Rate 18 18 Blood Pressure [Ri ght Upper Arm] 157/76 H 166/81 H 164/96 H Pulse Oximetry 92 93 Oxygen Delivery Pr thod Room Air Room Air Labs Labs: Short CBC 02/24/23 Range/Units 19:52 WBC 12.18 H (4.50-11.00) K/uL Hgb 12.0 L (13.5-17.5) gm/dL Hct 35.0 L (37.0-53.0) % Plt Count 211 (140-440) K/uL BMP 02/24/23 19:52 Sodium 131 L Potassium 3.7 Chloride 97 Carbon Dioxide 23 BUN 18 Creatinine 1.0 Glucose 108 Calcium 9.3 Cardiac Enzymes 02/24/23 Range/Units 19:52 Troponin I 0.03 (0.01-0.04) ng/mL Liver Function 02/24/23 Range/Units 19:52 Total Bilirubin 0.9 (0.1-1.5) mg/dL AST 55 H (12-35) U/L ALT 25 (4-50) U/L Alkaline Phosphatase 134 (40-150) U/L Albumin 3.5 (3.3-5.0) g/dL Urine 02/24/23 Range/Units 21:32 Urine Color Yellow (Yellow) Urine Appearance Clear (Clear) Urine pH 5.5 (5.0-8.5) Ur Specific [place] 1.015 (1.000-1.030) Urine Protein Negative (Negative) Urine Glucose (UA) Negative (Negative) Assessment and Plan Assessment and plan (1) Fall: Status: Acute Assessment and Plan: Admit for safety. PT/OT/SS in am. Will place on tele. Pt has pacemaker. (2) Closed rib fracture: Status: Acute Assessment and Plan: Pain control. PT/OT (3) Heart murmur: Status: Acute Assessment and Plan: Reviewed echo from November showing MS/MR. Would consider repeat in am. (4) Leukocytosis: Status: Acute Assessment and Plan: No signs of localized infection. Repeat in am. (5) Lactate blood increase: Status: Acute Assessment and Plan: Repeat at 6 hour singh. Continue gentle hydration. Plan Pt wishes to be a DNR.
[2023-02-25] MEDS: 0.9 % SODIUM CHLORIDE 1000 ml 1,000 ML 75 ML IV ×2 (01:16→13:06)
[2023-02-25] MEDS: OXYCODONE 5 MG TABLET PO ×4 (01:48→23:33)
[2023-02-25] MEDS: SODIUM CHLORIDE 0.9 % (FLUSH) 10 ML SYRINGE 5 ML IVF ×2 (01:48→22:01)
[2023-02-25 06:25] LABS: Basophils Absolute Auto 0.03 K/uL (0.00-0.30); Basophils Percent Auto 0.3 % (0.0-3.0); Eosinophils Absolute Auto 0.14 K/uL (0.00-0.50); Eosinophils Percent Auto 1.4 % (0.0-7.0); Hematocrit 35.2 % (37.0-53.0); Hemoglobin* 11.8 gm/dL (13.5-17.5); Immature Granulocytes Abs Auto 0.03 K/uL (0.00-0.30); Immature Granulocytes Pct Auto 0.3 %; Lymphocytes Percent Auto 17.6 % (20-44); Mean Corpuscular HGB Conc 34 gm/dL (32-36); Mean Corpuscular Hemoglobin 34 pg (26-34); Mean Corpuscular Volume 101 fL (80-100); Monocytes Percent Auto 8.9 % (0.0-11.0); Neutrophils Absolute Auto 6.95 K/uL (1.7-7.0); Neutrophils Percent Auto 71.5 % (42.0-72.0); Platelet Count* 159 K/uL (140-440); RDW Coefficient of Variation % 14.1 % (11.5-15.5); Red Blood Count 3.47 m/uL (4.30-5.90); White Blood Count* 9.73 K/uL (4.50-11.00)
[2023-02-25 06:27] LABS: Slide Review Reflex No
[2023-02-25 06:39] LABS: Chloride* 102 mmol/L (96-114); Sodium* 133 mmol/L (135-149)
[2023-02-25 06:40] LABS: Potassium* 3.7 mmol/L (3.6-5.1)
[2023-02-25 06:42] LABS: Blood Urea Nitrogen* 14 mg/dL (7-30); Carbon Dioxide* 20 mmol/L (20-32); Creatinine* 0.7 mg/dL (0.5-1.5); Est. Creatinine Clearance* 49.58; Estimated Glomerular Filt Rate 90 ml/min
[2023-02-25 06:43] LABS: Calcium* 8.5 mg/dL (8.4-10.6); Glucose* 91 mg/dL (60-115)
--- NOTE | 2023-02-25 06:47 | PC.NURSE ---
END OF SHIFT NOTE: PT PLEASANT AND COOPERATIVE. A&Ox4. DENIES CP, SOB, N/V. PT DID NOT AMBULATE THIS SHIFT. PT STOOD AT SIDE OF BED TO USE URINAL WITH A1; PT UNSTEADY. TELE PACED WITH BBB. CHRONIC LOWER BACK PAIN. PT RATES LOWER BACK PAIN AND RIGHT RIB/FLANK PAIN 8-04/18. PRN OXYCODONE ADMINISTERED. VSS; AFEBRILE; PT ON 0-1.5L SUPPLEMENTAL OXYGEN VIA OXYMASK NOC. BED ALARM ON AND CALL LIGHT WITHIN PT?S REACH.?
[2023-02-25 07:58] LABS: HCO3 VBG 24 mmol/L (21-28); Lactate* 1.2 mmol/L (0.5-1.9); PCO2 VBG 40 mmHG (40-50); PO2 VBG 43.3 mmHG (25-47); pH VBG 7.398 (7.32-7.43)
[2023-02-25 08:22] LABS: C Reactive Protein* 3.4 mg/dL (0.5-1.0)
[2023-02-25 08:37] LABS: Procalcitonin* 0.17 ng/mL (<0.50)
[2023-02-25 08:40] LABS: NT Pro B Type NatriureticPept* 1390 pg/mL
[2023-02-25 08:51] LABS: Thyroid Stimulating Hormone* 0.746 uIU/mL (0.270-4.20)
[2023-02-25] MEDS: OCUVITE TABLET 1 TAB PO (09:08)
[2023-02-25] MEDS: TIZANIDINE HCL 4 MG TABLET 2 MG PO (09:08)
--- NOTE | 2023-02-25 11:14 | PC.SOCIAL ---
Met with pt. to discuss discharge plans. Pt. lives at [facility] and receives the noon meal, medication set-up, and bathing assistance. Pt. feels it has been going well for him at his [facility] and he wants to return there with his current services. Therapies are recommending home PT and OT. Pt. is adamant he does not want a rehab stay at a SNF. A message was left with nursing at [facility] to update them that pt. will likely be ready for discharge tomorrow, resuming all current services but also needing in-home PT and OT.
--- NOTE | 2023-02-25 12:54 | P.IMHP_ITS ---
Hospitalist- H&P: HPI History of Present Illness Date Seen: 02/25/23 Chief complaint: Fall Narrative: Veronica Toro is a 88 year old male who presented to the emergency room last night from [facility]. Per ED records, patient had a mechanical fall with his walker. This morning he tells me it could have been anything mass, chest pain, palpitations, or dyspnea preceding his fall. ER Course and findings: - no acute findings on head CT or C-spine CT - chronic compression fractures noted at T2, T9, T11, T12, L1 - fractures of right 10th and 11 ribs - patient admitted overnight by E-hospitalist This morning, patient is quite sleepy but arousable - he had received pain medic ations prior to my visit (although he does take narcotics regularly for chronic pain). He specifically notes that he is still having acute on chronic back pain. He has no chest pain. When I review with him that he may have a cardiac abnormality, he reiterates that he would not want to be transferred to a higher level of care facility or have significant interventions performed. Medical history has been updated in chart, Dr. Carmona is PCP locally. Review of Systems Status of ROS: Reports: 10 or more systems reviewed and unremarkable except as noted in History and below Narrative: Limited by grogginess, patient intermittently wakes up during visit to answer questions. Specifically complains of back pain, specifically denies chest pain. Clear regarding DNR/DNI status. [facility] Medical History History of Clostridioides difficile infection (11/29/22) ?Z86.19 - Personal history of other infectious and parasitic diseases (ICD- 10) History of deep venous thrombosis (DVT) of distal vein of left lower extremity ?Z86.718 - Personal history of other venous thrombosis and embolism (ICD-10) History of Mobitz type II block ?Z86.79 - Personal history of other diseases of the circulatory system (ICD- 10) Surgical History Basal cell carcinoma (BCC) ?C44.91 - Basal cell carcinoma of skin, unspecified (ICD-10) S/P YAG capsulotomy, bilateral ?Z98.890 - Other specified postprocedural states (ICD-10) H/O wisdom tooth extraction ?K08.409 - Partial loss of teeth, unspecified cause, unspecified class (ICD- 10) S/P tonsillectomy ?Z90.89 - Acquired absence of other organs (ICD-10) Status post cataract extraction of both eyes with insertion of intraocular lens ?Z98.41 - Cataract extraction status, right eye (ICD-10) ?Z98.42 - Cataract extraction status, left eye (ICD-10) ?Z96.1 - Presence of intraocular lens (ICD-10) Status post placement of cardiac pacemaker ?Z95.0 - Presence of cardiac pacemaker (ICD-10) Family History Mother Glaucoma Father Heart failure Sister Breast cancer Social History (Updated 02/25/23 @ 13:46 by Lilian Chicas MD) Narrative: 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 Not currently smoking. Rare ETOH. Requests DNR/DNI status. What is your current living situation?: I presently have a place to live Problems where you live: no known problems Problems where you live details: N/A In the past 12 months, utilities in danger of being shut off: no In the past 12 mos, have been you worried that your food would run out before you had money to buy more?: never true In the past 12 mos, the food you bought just didn't last and you didn't have money to buy more?: never true Highest level of school completed/degree received: Master's degree Smoking Status: Former smoker Second hand tobacco smoke exposure: No How often do you have a drink containing alcohol: monthly or less Alcohol type: wine Alcohol type details: 1/2 glass q 3 weeks How often do you have six or more drinks on one occasion: Never AUDIT-C Alcohol total score: 1 Non-prescribed substance use: denies use Caffeine: Yes How often does anyone, including family, friends and others, physically hurt you : never How often does anyone, including family, friends and others, insult or talk down to you: never How often does anyone, including family, friends and others, threaten you with harm: never How often does anyone, including family, friends and others, scream or curse at you: never Little interest or pleasure in doing things: several days Feeling down, depressed, or hopeless: several days service: No Meds Home Medications and Allergies Home Medications Medication Instructions Recorded Confirmed Type acetaminophen 500 mg tablet 1,000 mg PO TID 11/28/22 02/25/23 History alendronate 70 mg tablet 70 mg PO HOPE 11/28/22 02/25/23 History ibuprofen 200 mg tablet (Advil) 400 mg PO BID 11/28/22 02/25/23 History cranberry 400 mg capsule 400 mg PO QDAY 01/07/23 02/25/23 History cetirizine 10 mg tablet 10 mg PO DAILY 01/19/23 02/25/23 History fluticasone propionate 50 1 spray intranasal DAILY 01/19/23 02/25/23 History mcg/actuation nasal spray,suspension calcium carbonate 500 mg calcium 1,000 mg PO Q6H PRN 02/25/23 02/25/23 History (1,250 mg) chewable tablet (Calcium 500) oxycodone 5 mg tablet 2.5 mg PO Q6H PRN pain 02/25/23 02/25/23 History vit C 250 mg-vit E 90 mg-zinc 40 1 tab PO DAILY 02/25/23 02/25/23 History mg-copper 1 mm-bgiwnk-anggrb capsule (PreserVision AREDS-2) Allergies Allergy/AdvReac Type Severity Reaction Status Date / Time Penicillins Allergy Mild Rash Verified 02/24/23 21:32 escitalopram [From Lexapro] Allergy Unknown Ear Verified 02/24/23 21:32 Pressure amoxicillin Allergy Rash Verified 02/24/23 21:32 Exam Narrative: Exam Narrative: GEN: Laying in bed, appears chronically ill, resting but awakens intermittently during interview HEENT: Dentition substandard without evidence of acute infection, EOMIs bilaterally, no scleral icterus CV: RRR, holosystolic murmur heard best in L mid clavicular line R: LCTA bilaterally without concerning wheezing, air movement adequate Ext: wwp, no concerning edema Skin: Pale Neuro: Nonfocal Psych: Sleepy, otherwise appropriate Const: Vital Signs, click to edit/add: Vital Signs - 24 hr 02/24/23 19:25 02/24/23 19:25 02/24/23 19:30 Temperature 98.6 F Pulse Rate Pulse Rate [Apical ] 70 80 97 Pulse Rate [Pulse Oximeter] Respiratory Rate 18 18 18 Blood Pressure [Ri ght Arm] Blood Pressure [Ri ght Upper Arm] 131/59 L 123/65 145/71 H Pulse Oximetry 94 94 93 Oxygen Delivery Tn thod Room Air Room Air Room Air Oxygen Flow Rate 02/24/23 19:45 02/24/23 20:00 02/24/23 21:30 Temperature Pulse Rate Pulse Rate [Apical ] 87 78 90 Pulse Rate [Pulse Oximeter] Respiratory Rate 18 18 18 Blood Pressure [Ri ght Arm] Blood Pressure [Ri ght Upper Arm] 136/55 L 128/63 154/88 H Pulse Oximetry 93 94 93 Oxygen Delivery Tn thod Room Air Room Air Oxygen Flow Rate 02/24/23 21:45 02/24/23 22:00 02/24/23 22:15 Temperature Pulse Rate Pulse Rate [Apical ] 100 Pulse Rate [Pulse Oximeter] Respiratory Rate 18 18 Blood Pressure [Ri ght Arm] Blood Pressure [Ri ght Upper Arm] 157/76 H 166/81 H 164/96 H Pulse Oximetry 92 93 Oxygen Delivery Tn thod Room Air Room Air Oxygen Flow Rate 02/25/23 00:15 02/25/23 00:15 02/25/23 00:15 Temperature 97.0 F L Pulse Rate Pulse Rate [Apical ] Pulse Rate [Pulse Oximeter] Respiratory Rate 18 18 Blood Pressure [Ri ght Arm] 171/86 H Blood Pressure [Ri ght Upper Arm] Pulse Oximetry 92 92 92 [facility] Air Oxygen Flow Rate 02/25/23 02:00 02/25/23 03:00 02/25/23 08:00 Temperature 97.9 F Pulse Rate 71 Pulse Rate [Apical ] Pulse Rate [Pulse Oximeter] 104 H 104 H Respiratory Rate 16 16 Blood Pressure [Ri ght Arm] 173/79 H Blood Pressure [Ri ght Upper Arm] Pulse Oximetry 95 Oxygen Delivery Me thod Room Air Oxygen Flow Rate 1.5 02/25/23 08:00 02/25/23 08:00 02/25/23 11:00 Temperature 97.7 F 97.0 F L Pulse Rate Pulse Rate [Apical ] Pulse Rate [Pulse Oximeter] 104 H 80 Respiratory Rate 16 16 16 Blood Pressure [Ri ght Arm] 152/71 H 101/55 L Blood Pressure [Ri ght Upper Arm] Pulse Oximetry 94 94 95 Oxygen Delivery Me thod Room Air Room Air Room Air Oxygen Flow Rate 0 0 Hospitalist - H&P: Result Labs Labs: Short CBC 02/24/23 02/25/23 Range/Units 19:52 05:56 WBC 12.18 H 9.73 (4.50-11.00) K/uL Hgb 12.0 L 11.8 L (13.5-17.5) gm/dL Hct 35.0 L 35.2 L (37.0-53.0) % Plt Count 211 159 (140-440) K/uL BMP 02/24/23 02/25/23 19:52 05:56 Sodium 131 L 133 L Potassium 3.7 3.7 Chloride 97 102 Carbon Dioxide 23 20 BUN 18 14 Creatinine 1.0 0.7 Glucose 108 91 Calcium 9.3 8.5 Cardiac Enzymes 02/24/23 02/25/23 Range/Units 19:52 07:55 Troponin I 0.03 0.10 H* (0.01-0.04) ng/mL Liver Function 02/24/23 Range/Units 19:52 Total Bilirubin 0.9 (0.1-1.5) mg/dL AST 55 H (12-35) U/L ALT 25 (4-50) U/L Alkaline Phosphatase 134 (40-150) U/L Albumin 3.5 (3.3-5.0) g/dL Urine 02/24/23 Range/Units 21:32 Urine Color Yellow (Yellow) Urine Appearance Clear (Clear) Urine pH 5.5 (5.0-8.5) Ur Specific [place] 1.015 (1.000-1.030) Urine Protein Negative (Negative) Urine Glucose (UA) Negative (Negative) Assessment and Plan Assessment and plan (1) Fall: Problem comment: - likely mechanical, could have also been related to orthostasis or valvular disease - PT and OT ordered Status: Acute (2) Closed rib fracture: Problem comment: - pain control, therapies Status: Acute (3) Elevated troponin: Problem comment: - demand ischemia vs. cardiac event as source of fall - TTE 02/25, follow troponin to peak - patient clear that he does not desire aggressive intervention Status: Acute (4) Heart murmur: Problem comment: - previous TTE below - repeat TTE 02/25, as progression of disease may have contributed to fall risk Final Impressions: 1. Normal LV size, normal wall thickness, normal global systolic function with an estimated EF of 65 - 70%. 2. Moderately enlarged left atrium. 3. The aortic valve is trileaflet and sclerotic, no stenosis and no regurgitation. 4. The mitral valve is sclerotic, mild mitral regurgitation 5. Mitral stenosis with moderately increased mean gradient of 8.8 mmHg at a heart rate of 82. Status: Acute (5) Leukocytosis: Problem comment: - noted on admission 02/24, resolved 02/25. No evidence of infectious process Status: Acute (6) Lactate blood increase: Problem comment: - resolved on 02/25 Status: Acute Plan - per above - called daughter Danitza with an update, message left - likely back to [facility] when medically stable, possibly as early as tomorrow
--- NOTE | 2023-02-25 14:46 | PC.SOCIAL ---
Spoke with Ivory RN at pt.'s residence [facility] who was updated pt. will return with same services but PT and OT was recommended. Ivory said pt. was already getting PT and OT at his apartment but was refusing the therapies. It was in the works for pt. to move to the [facility] due to pt. stating his pain was not being controlled with nurses giving pain medications every 4 hours. They are limited administering medications more frequently due to home health aides being the only ones in the building at times. She was updated pt. was refusing a SNF and wants to discharge back to his apartment. Ivory was going to update pt.'s daughter to see if she could convince him that the [facility] would be a better fit for him. Pt. will return to [facility] unless he agrees to move to the [facility].
[2023-02-25] MEDS: ACETAMINOPHEN 650 MG TABLET ER 1300 MG PO ×2 (14:50→22:01)
[2023-02-25] MEDS: LIDOCAINE 5% PATCH 1 PATCH TRANSDERMA (14:50)
--- NOTE | 2023-02-25 15:16 | PC.SOCIAL ---
Spoke with pt.'s daughter Danitza who is driving here and will be here by 6pm to try and convince pt, to go back to the [facility]. A referral was sent to [facility] the [facility] and they are assessing.
--- NOTE | 2023-02-25 15:26 | PC.NURSE ---
End of shift nursing note, care provided [id number]: Pt alert and oriented 2-3 this shift, was very drowsy in middle of shift. Vitals stable aside from decreased BP in afternoon compared to other BP recordings, hospitalist updated and saw pt at bedside, HR intermit tachy as well, low 100s bpm. Pt more awake in afternoon and eating late lunch. Pt con't on RA. Tolerating diet but needs encouragement and prompting to eat. pt reluctant to get up to chair but strongly encouraged to do so and pt compliant and up to chair for meals this shift. Ax1-2 w/ walker and gaitbelt. TEDs on. Using urinal an bathroom for bathroom needs. Call light within reach and bed/chair alarms on for safety promotion.
--- NOTE | 2023-02-25 16:12 | PC.SOCIAL ---
Pt. has been accepted to the [facility] for short-term rehab. They have set up the van to sweet pickle maker pt. at 11am.
[2023-02-25 16:42] LABS: Troponin I* 0.08 ng/mL (0.01-0.04)
--- NOTE | 2023-02-25 19:28 | REH.OT ---
Orders received for OT eval and treat. Patient unable to fully participate in evaluation due to lethargy. Will attempt on 02/26/23.
[2023-02-25] MEDS: ENOXAPARIN 30 MG/0.3ML INJ SUBCUT (22:00)
[2023-02-26 01:04] VITALS: O2SAT 92
[2023-02-26] MEDS: 0.9 % SODIUM CHLORIDE 1000 ml 1,000 ML 75 ML IV (02:05)
[2023-02-26 02:06] VITALS: PULSE 94
[2023-02-26 02:45] VITALS: BP 152/70; PULSE 84; RESP 18; TEMP 36.4; O2SAT 93
[2023-02-26] MEDS: OXYCODONE 5 MG TABLET PO ×2 (03:31→08:09)
[2023-02-26] MEDS: ACETAMINOPHEN 650 MG TABLET ER 1300 MG PO (06:20)
[2023-02-26 06:51] LABS: Basophils Absolute Auto 0.04 K/uL (0.00-0.30); Basophils Percent Auto 0.5 % (0.0-3.0); Eosinophils Absolute Auto 0.54 K/uL (0.00-0.50); Eosinophils Percent Auto 6.4 % (0.0-7.0); Hematocrit 32.3 % (37.0-53.0); Hemoglobin* 11.1 gm/dL (13.5-17.5); Immature Granulocytes Abs Auto 0.02 K/uL (0.00-0.30); Immature Granulocytes Pct Auto 0.2 %; Lymphocytes Absolute Auto 1.87 K/uL (0.90-2.90); Lymphocytes Percent Auto 22.2 % (20-44); Mean Corpuscular HGB Conc 34 gm/dL (32-36); Mean Corpuscular Hemoglobin 34 pg (26-34); Mean Corpuscular Volume 99 fL (80-100); Monocytes Percent Auto 11.1 % (0.0-11.0); Neutrophils Absolute Auto 5.03 K/uL (1.7-7.0); Neutrophils Percent Auto 59.6 % (42.0-72.0); Platelet Count* 197 K/uL (140-440); Red Blood Count 3.25 m/uL (4.30-5.90); White Blood Count* 8.44 K/uL (4.50-11.00)
[2023-02-26 06:57] LABS: Slide Review Reflex No
[2023-02-26 07:34] LABS: Chloride* 104 mmol/L (96-114)
[2023-02-26 07:35] LABS: Albumin* 2.9 g/dL (3.3-5.0); Potassium* 3.4 mmol/L (3.6-5.1); Sodium* 134 mmol/L (135-149)
[2023-02-26 07:37] LABS: Creatinine* 0.7 mg/dL (0.5-1.5); Est. Creatinine Clearance* 49.58; Estimated Glomerular Filt Rate 90 ml/min
[2023-02-26 07:38] LABS: Alanine Aminotransferase* 27 U/L (4-50); Alkaline Phosphatase* 140 U/L (40-150); Aspartate Amino Transferase* 70 U/L (12-35); Bilirubin Total* 0.9 mg/dL (0.1-1.5); Blood Urea Nitrogen* 14 mg/dL (7-30); Carbon Dioxide* 23 mmol/L (20-32); Glucose* 105 mg/dL (60-115); Total Protein* 6.1 g/dL (6.0-8.3)
[2023-02-26 07:39] LABS: Calcium* 8.3 mg/dL (8.4-10.6)
[2023-02-26 07:50] LABS: Troponin I* 0.05 ng/mL (0.01-0.04)
[2023-02-26 08:00] VITALS: BP 175/90; PULSE 97; RESP 18; TEMP 36.6; O2SAT 94
--- NOTE | 2023-02-26 08:13 | P.DS_ITS ---
DS: Providers Provider Date Seen: 02/26/23 Date of admission: 02/25/23 00:09 Primary care physician: Chetna Carmona MD Admitting Clinician: Aram Sawyer DO Consults: 02/25/23 01:02 Consult to Physical Therapy [CONS] Routine Comment: Reason(s) for PT Consult:: Evaluate Ambulation Any Restrictions?:: No Restrictions Consult to Integration Engineer [CONS] Routine Comment: Reason for Consult:: Social Service Consult 02/25/23 01:05 Consult to Occupational Therapy [CONS] Routine Comment: Reason(s) for OT Consult:: Evaluate and Treat Any Restrictions?:: No Restrictions 02/25/23 05:28 Consult to Occupational Therapy [CONS] Routine Comment: Reason(s) for OT Consult:: Difficulty Managing ADLs Any Restrictions?:: No Restrictions Consult to Physical Therapy [CONS] Routine Comment: Reason(s) for PT Consult:: Recent Falls Any Restrictions?:: No Restrictions Attending Physician on discharge: Luly Rocha MD [facility] Date of Discharge: 02/26/23 DS: Diagnosis Discharge Diagnosis (1) Fall: Status: Acute Problem details: - likely mechanical, could have also been related to orthostasis - PT and OT ordered and can be continued at [facility] (2) Weakness: Status: Acute Problem details: Multifactorial. 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 Castro 10/06/22 (recommended posture, physical therapy, and Back extension brace--note scanned in) (6) Osteoporosis: Status: Chronic Problem details: with pathological fxs at T12, T11 and T9 per 10/06/22 Spine XR. (7) Essential hypertension: Status: Chronic Problem details: peaked and resolution noted. ECHO reviewed from 02/25 - no change from previous. (8) Elevated troponin: Status: Acute Problem details: - demand ischemia vs. cardiac event as source of fall - TTE 02/25, follow troponin to peak - patient clear that he does not desire aggressive intervention (9) Lactate blood increase: Status: Acute Problem details: - resolved on 02/25 (10) Leukocytosis: Status: Acute Problem details: - noted on admission 02/24, resolved 02/25. No evidence of infectious process (11) Heart murmur: Status: Acute Problem details: - previous TTE below - repeat TTE 02/25, as progression of disease may have contributed to fall risk Final Impressions: 1. Normal LV size, normal wall thickness, normal global systolic function with an estimated EF of 65 - 70%. 2. Moderately enlarged left atrium. 3. The aortic valve is trileaflet and sclerotic, no stenosis and no regurgitation. 4. The mitral valve is sclerotic, mild mitral regurgitation 5. Mitral stenosis with moderately increased mean gradient of 8.8 mmHg at a heart rate of 82. 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 He was able to reach his emergency call light and was brought in to our emergency room for further evaluation. His sustained compression fractures of his thoracic spine and closed rib fractures. The etiology of the fall was likely mechanical. However his troponin was bumped min imally. Echo was stable. He has chronic pain which also makes movement difficult. He is at a high risk of fall secondary to chronic ileocostal friction syndrome and poor muscle mass. SUBSTANTIVE NOTATIONS ON IMAGING, LAB, MICROBIOLOGY/PATHOLOGY STUDIES: Final Impressions: 1. Normal LV size, normal global systolic function with an estimated EF of 65 - 70%. 2. Right ventricular cavity size is normal, global systolic RV function is normal. 3. The aortic valve is sclerotic and trileaflet, mild stenosis and no regurgitation. 4. The mitral valve is sclerotic, mild mitral regurgitation with moderate stenosis. MG 6.7mmHg (63bpm, SR). CT CAP Acute, mildly displaced right posterior lateral 10th and 11th rib fractures. Chronic compression fractures of the T2, T9, T11, T12, and L1 vertebral bodies in the setting of osteopenia. No acute findings within the abdomen or pelvis. 6 mm nonobstructing right nephrolith. Bilateral bladder diverticula with multiple stones in the bladder lumen and left bladder diverticulum. ? Comparison Compared to prior exam of 11/29/22, there has been no clinically significant change. DISCHARGE MEDICATIONS: See Reconciled list - SIGNIFICANT CHANGES: No changes REVIEW OF SYSTEMS No new chest pain or dyspnea Pain controlled No voiding difficulties Tolerating diet challenge PHYSICAL EXAM: CONSTITUTIONAL: VITAL SIGNS: see record. HEENT: Normocephalic, atraumatic. PERRL, EOMI, conjunctivae pink, no scleral icterus. Ears and nose externally normal. Pharynx normal. NECK: No JVD. No carotid bruit, no thyromegaly, no adenopathy. CHEST: Clear to auscultation bilaterally. HEART: S1 and S2 normal. Edema ABDOMEN: Soft, nontender. Normal bowel sounds. MUSCULOSKELETAL: No gross joint deformity or swelling. NEURO: Cranial nerves intact. Grossly intact. No asymmetric findings. SKIN: No rashes, petechiae, concerning changes PSYCHIATRIC: Mood euthymic. DISPOSITION: [facility] - care center at [facility] Time spent on discharge 37 minutes. Time Spent with Patient Time attestation: Total time spent providing and/or coordinating discharge services: Exam Const: Vital Signs, click to edit/add: Vital Signs - 24 hr 02/25/23 11:00 02/25/23 15:00 02/25/23 15:00 Temperature 97.0 F L Pulse Rate Pulse Rate [Pulse Oximeter] 80 80 Respiratory Rate 16 16 16 Blood Pressure [Ri ght Arm] 101/55 L Pulse Oximetry 95 95 Oxygen Delivery Me thod Room Air Room Air Oxygen Flow Rate 0 02/25/23 15:00 02/25/23 18:06 02/25/23 19:00 Temperature 97.9 F 98 F Pulse Rate 89 Pulse Rate [Pulse Oximeter] 87 77 Respiratory Rate 16 16 Blood Pressure [Ri ght Arm] 94/43 L 125/57 L Pulse Oximetry 95 93 Oxygen Delivery Me thod Room Air Room Air Oxygen Flow Rate 0 0 02/25/23 23:30 02/25/23 23:30 02/25/23 23:30 Temperature 97.9 F Pulse Rate Pulse Rate [Pulse Oximeter] 100 100 Respiratory Rate 16 18 18 Blood Pressure [Ri ght Arm] 149/66 H Pulse Oximetry 89 89 Oxygen Delivery Me thod Room Air Room Air Oxygen Flow Rate 02/26/23 01:04 02/26/23 02:06 02/26/23 02:45 Temperature 97.6 F Pulse Rate 94 Pulse Rate [Pulse Oximeter] 84 Respiratory Rate 18 Blood Pressure [Ri ght Arm] 152/70 H Pulse Oximetry 92 93 Oxygen Delivery Me thod Room Air Oxygen Flow Rate DS: Data Data Completed and Pending Labs on day of discharge: Labs from last 24 hours 02/26/23 02/25/23 02/25/23 06:40 15:45 07:55 WBC 8.44 RBC 3.25 L Hgb 11.1 L Hct 32.3 L MCV 99 MCH 34 MCHC 34 RDW Coeff of Sveta 14.0 Plt Count 197 Neut % (Auto) 59.6 Lymph % (Auto) 22.2 [place] % (Auto) 11.1 H Eos % (Auto) 6.4 Baso % (Auto) 0.5 Neut # (Auto) 5.03 Lymph # (Auto) 1.87 [place] # (Auto) 0.90 Eos # (Auto) 0.54 H Baso # (Auto) 0.04 Abs Immat Gran (auto) 0.02 Imm/Tot Granulo (auto) 0.2 Sodium 134 L Potassium 3.4 L Chloride 104 Carbon Dioxide 23 BUN 14 Creatinine 0.7 Estimated Creat Clear 49.58 Estimated GFR 90 Glucose 105 Calcium 8.3 L Magnesium 2.0 Total Bilirubin 0.9 AST 70 H ALT 27 Alkaline Phosphatase 140 Troponin I 0.05 H 0.08 H* 0.10 H* C-Reactive Protein 5.0 H 3.4 H NT-Pro-B Natriuret Pep 1390 Total Protein 6.1 Albumin 2.9 L Procalcitonin 0.17 TSH 0.746 Preliminary micro results at discharge 02/24/23 22:50 Blood Culture - Preliminary Blood NO GROWTH AFTER 24 HOURS 02/24/23 22:55 Blood Culture - Preliminary Blood NO GROWTH AFTER 24 HOURS Discharge Plan Discharge Disposition: [facility] Date of Admission: 02/25/23 00:09 Attending Provider on Discharge: Luly Rocha Primary Care Provider: Chetna Carmona Condition: Stable Discharge Medications: New oxycodone 5 mg tablet 2.5 mg PO Q4H PRN (Reason: pain) Qty: 60 0RF Continued cranberry 400 mg capsule 400 mg PO QDAY Rx Instructions: administer with a meal alendronate 70 mg tablet 70 mg PO HOPE Rx Instructions: SUNDAYS acetaminophen 500 mg tablet 1,000 mg PO TID ibuprofen [Advil] 200 mg tablet 400 mg PO BID Rx Instructions: PLUS BID PRN PreserVision AREDS-2 250-90-40-1 mg capsule 1 tab PO DAILY calcium carbonate [Calcium 500] 500 mg calcium (1,250 mg) tablet,chewable 1,000 mg PO Q6H PRN fluticasone propionate 50 mcg/actuation spray,suspension 1 spray INTRANASAL DAILY cetirizine 10 mg tablet 10 mg PO DAILY Discontinued oxycodone 5 mg tablet 2.5 mg PO Q6H PRN (Reason: pain) Discharge Orders: Discharge Order (Routine); Ordered 02/26/23 Ordered By: Luly Rocha Activity Level: Activity as Tolerated Discharge Diet: Regular Follow Up Appointments: [facility] [Outside] (Patient being discharged to [facility]) Chetna Carmona MD [Primary Care Provider] - 03/12/23 Forms: [facility] Info Instructions Discharge Potential: Fair Length of Stay: 30-90 days Can use facility standing orders?: Yes Code Status: DNR/DNI TEDs: N/A Rehab Potential: Fair Therapy: Physical Therapy and Occupational Therapy Therapy Orders: Evaluate and Treat Oxygen: No Urinary Catheter: No Hospice Evaluate and Admit: Pt is interested in Hospice consult; there is question on admitting diagnosis. please have hospice review and interview. Orders are good >30 days: Yes
--- NOTE | 2023-02-26 08:58 | PC.NURSE ---
Pt alert and oriented x3. Afebrile. Pt reports pain 9/10 in right hip, pain managed with PRN medications. Pt asked writer editor several times on what time pain medications can be given next and asked that he get his pain meds at the time it is available to be given again. [employer] asked pt what his baseline pain is at home, he reported 8/10 and that oxycodone given here brings it down to 6-7/10. Pt denies chest pain, SOB, and N/V.?Pt is up ad penelope in room. Pt was up to bathroom x6 throughout night outputting around 100-150 ml each time and reported to writer editor ?I just can?t get all of it out?. [employer] performed a bladder scan, it showed 275 ml, pt voided again after the bladder scan for 150 ml.?Pt is tolerating a reg diet. Pt slept intermittently throughout night. ?
[2023-02-26] MEDS: CETIRIZINE HCL 10 MG TABLET PO (09:38)
[2023-02-26] MEDS: DOCUSATE SODIUM 100 MG CAPSULE PO (09:38)
--- NOTE | 2023-02-26 11:10 | REH.OT ---
Patient discharged to [facility] for rehab prior to OT evaluation today.
== END 2023-02-26 11:00 ==
LOC: ED 23:16 → MEDSURG 02-25 00:13
PROVIDERS: Family Medicine; Internal Medicine; Admitting Provider Student in an Organized Health Care Education/Training Program; Emergency Provider Student in an Organized Health Care Education/Training Program; PCP Internal Medicine; Visit Provider Student in an Organized Health Care Education/Training Program
DX: R53.1 Weakness (principal); S22.41XA Multiple fractures of ribs, right side, initial encounter for closed fracture; I95.1 Orthostatic hypotension; R77.8 Other specified abnormalities of plasma proteins; D72.829 Elevated white blood cell count, unspecified; R01.1 Cardiac murmur, unspecified; R79.89 Other specified abnormal findings of blood chemistry; I08.0 Rheumatic disorders of both mitral and aortic valves; R74.02 Elevation of levels of lactic acid dehydrogenase [LDH]; I10 Essential (primary) hypertension; M85.80 Other specified disorders of bone density and structure, unspecified site; M79.89 Other specified soft tissue disorders; M62.50 Muscle wasting and atrophy, not elsewhere classified, unspecified site; S22.000A Wedge compression fracture of unspecified thoracic vertebra, initial encounter for closed fracture; M81.0 Age-related osteoporosis without current pathological fracture; S70.02XA Contusion of left hip, initial encounter; M25.512 Pain in left shoulder; E86.0 Dehydration; J44.9 Chronic obstructive pulmonary disease, unspecified; N20.0 Calculus of kidney; R10.9 Unspecified abdominal pain; M54.59 Other low back pain; G89.29 Other chronic pain; W19.XXXA Unspecified fall, initial encounter; Z91.81 History of falling; Z87.891 Personal history of nicotine dependence; Z86.718 Personal history of other venous thrombosis and embolism; Z86.19 Personal history of other infectious and parasitic diseases; Z86.79 Personal history of other diseases of the circulatory system; Z98.890 Other specified postprocedural states; Z90.89 Acquired absence of other organs; Z98.41 Cataract extraction status, right eye; Z98.42 Cataract extraction status, left eye; Z96.1 Presence of intraocular lens; Z95.0 Presence of cardiac pacemaker; Z66 Do not resuscitate
CPT/HCPCS: 36415; 51798; 70450; 71260; 72125; 73030; 74177; 80048; 80053; 81001; 82803; 83605; 83735; 83880; 84145; 84443; 84484; 85025; 86140; 87040; 93005; 93306; 94761; 96361; 96372; 96375; 97116; 97161; 99283; G0378; A9153; A9270; J1650; J1885; J7030; Q9967